=== PATIENT | female | born 1980 | race Caucasian/White ===

== ENCOUNTER 2016-12-01 11:04 | Emergency (ER) | payer SELFPAY ==
--- NOTE | 2016-12-01 11:12 | ER Document Report ---
ED Medical Screen (RME) - General Stated Complaint: RIGHT FLANK PAIN Time seen by provider: 11:12 Mode of Arrival: Ambulatory Information source: Patient Notes: 36 yo female with constant right flank pain for 2 days when it woke her up. no hematuria but has hx of kidney stones and decreased urine output. Feels like a kidney stone, has had lithotrypsy in past. TRAVEL OUTSIDE OF THE [place] IN LAST 30 DAYS: No - Related Data Allergies/Adverse Reactions: amoxicillin Allergy (Verified 12/01/16 11:16) ibuprofen [From Motrin] Allergy (Verified 12/01/16 11:16) naproxen Allergy (Verified 12/01/16 11:16) Penicillins Allergy (Verified 12/01/16 11:16) Past Medical History Pulmonary Medical History: Reports: Hx Asthma Musculoskeltal Medical History: Reports Hx Musculoskeletal Deformity, Reports Hx Musculoskeletal Trauma Psychiatric Medical History: Reports: Hx Depression Traumatic Medical History: Reports: Hx Fractures Past Surgical History: Reports: Hx Appendectomy, Hx Cholecystectomy, Hx Hysterectomy - partial, Hx Orthopedic Surgery - back surgery, left knee - Immunizations Immunizations up to date: No Hx Diphtheria, Pertussis, Tetanus Vaccination: No
[2016-12-01] MEDS ORDERED: OXYCODONE-ACETAMINOPHEN 5-325 MG TABLET PO ONE (11:15)
[2016-12-01] MEDS ORDERED: ONDANSETRON 4 MG TAB.RAPDIS PO ONE (11:15)
--- NOTE | 2016-12-01 11:57 | ER Document Report ---
ED GI/ - General Chief Complaint: Flank Pain Stated Complaint: RIGHT FLANK PAIN Time seen by provider: 11:45 Mode of Arrival: Ambulatory Information source: Patient Notes: 36 year old female presents to ED for right flank pain. She states that her pain started 2 days ago woke up with no urinary symptoms. She does have a history of kidney problems and kidney stones. 2013 she had a lithotripsy for kidney stones TRAVEL OUTSIDE OF THE [place] IN LAST 30 DAYS: No - HPI Patient complains to provider of: Flank pain. No: Hematuria Onset: Other - 2 days Timing/Duration: Intermittent Quality of pain: Sharp Severity at maximum: Moderate Severity in ED: Severe Pain Level: 5 Location: Right flank Vaginal bleeding (Compared to normal period): None Associated symptoms: Radiates to back Exacerbated by: Movement, Walking Relieved by: Denies Similar symptoms previously: Yes Recently seen / treated by doctor: No - Related Data Allergies/Adverse Reactions: amoxicillin Allergy (Verified 12/01/16 11:16) ibuprofen [From Motrin] Allergy (Verified 12/01/16 11:16) naproxen Allergy (Verified 12/01/16 11:16) Penicillins Allergy (Verified 12/01/16 11:16) Past Medical History - General Information source: Patient - Social History Smoking Status: Current Every Day Smoker Cigarette use (# per day): Yes - half pack a day Chew tobacco use (# tins/day): No Smoking Education Provided: No Frequency of alcohol use: None Drug Abuse: None Occupation: no Lives with: Spouse/Significant other Family History: CAD, CVA, DM, Hyperlipidemia, Hypertension, Malignancy Patient has suicidal ideation: No Patient has homicidal ideation: No - Past Medical History Cardiac Medical History: Reports: None Pulmonary Medical History: Reports: Hx Asthma EENT Medical History: Reports: None Neurological Medical History: Reports: None Endocrine Medical History: Reports: None Renal/ Medical History: Reports: Hx Kidney Stones, Hx Ovarian Cysts Malignancy Medical History: Reports: None GI Medical History: Reports: Hx Gastroesophageal Reflux Disease, Hx Colonoscopy , Hx Endoscopy Musculoskeltal Medical History: Reports Hx Musculoskeletal Deformity, Reports Hx Musculoskeletal Trauma Skin Medical History: Reports None Psychiatric Medical History: Reports: Hx Anxiety, Hx Bipolar Disorder, Hx Depression Traumatic Medical History: Reports: None Infectious Medical History: Reports: None Past Surgical History: Reports: Hx Appendectomy, Hx Cholecystectomy, Hx Hysterectomy - partial, Hx Orthopedic Surgery - back surgery, left knee - Immunizations Immunizations up to date: No Hx Diphtheria, Pertussis, Tetanus Vaccination: No Review of Systems - Review of Systems Constitutional: No symptoms reported EENT: No symptoms reported Cardiovascular: No symptoms reported Respiratory: No symptoms reported Gastrointestinal: No symptoms reported Genitourinary: No symptoms reported, Flank pain - Right Female Genitourinary: No symptoms reported Musculoskeletal: No symptoms reported Skin: No symptoms reported Hematologic/Lymphatic: No symptoms reported Neurological/Psychological: No symptoms reported Physical Exam - Vital signs Vitals: Temp Pulse Resp BP Pulse Ox 98.0 F 90 18 137/80 H 97 12/01/16 11:14 12/01/16 11:14 12/01/16 11:14 12/01/16 11:14 12/01/16 11:14 Interpretation: Normal - General General appearance: Appears well, Alert - HEENT Head: Normocephalic, Atraumatic Eyes: Normal Pupils: PERRL - Respiratory Respiratory status: No respiratory distress Chest status: Nontender Breath sounds: Normal Chest palpation: Normal - Cardiovascular Rhythm: Regular Heart sounds: Normal auscultation Murmur: No - Abdominal Inspection: Normal Distension: No distension Bowel sounds: Normal Tenderness: Nontender Organomegaly: No organomegaly - Back Back: Normal, CVA tenderness - Right, Scars. No: Nontender, Tender, Deformity/ step-off, Vertebra tenderness, Scoliosis, Wounds, Other - Extremities General upper extremity: Normal inspection, Nontender, Normal color, Normal ROM , Normal temperature General lower extremity: Normal inspection, Nontender, Normal color, Normal ROM , Normal temperature, Normal weight bearing. No: Aaron's sign - Neurological Neuro grossly intact: Yes Cognition: Normal Orientation: AAOx4 [place] Coma Scale Eye Opening: Spontaneous [place] Coma Scale Verbal: Oriented [place] Coma Scale Motor: Obeys Commands [place] Coma Scale Total: 15 Speech: Normal Motor strength normal: LUE, RUE, LLE, RLE Sensory: Normal - Psychological Associated symptoms: Normal affect, Normal mood - Skin Skin Temperature: Warm Skin Moisture: Dry Skin Color: Normal Course - Re-evaluation Re-evalutation: 12/01/16 13:[address] and labs with patient we'll discharge home with ibuprofen and Flexeril and patient can follow-up with her primary doctor. - Vital Signs Vital signs: Temp Pulse Resp BP Pulse Ox 98.0 F 85 16 125/70 100 12/01/16 13:38 12/01/16 13:38 12/01/16 13:38 12/01/16 13:38 12/01/16 13:38 - Laboratory Laboratory results interpreted by me: 12/01/16 11:30 Ur Leukocyte Esterase TRACE H - Diagnostic Test Radiology reviewed: Image reviewed, Reports reviewed Discharge - Discharge Clinical Impression: Right flank pain Condition: Stable Disposition: HOME, SELF-CARE Instructions: Family Physicians / Practices Additional Instructions: Flank Pain We weren't able to prove an exact cause for your flank pain. Pain in the flank can be caused by a muscle strain or spasm. Sometimes a kidney stone causes pain, but can't be found on our tests. Infection in the kidney should be evident on a urine test. Early shingles can occasionally cause flank pain, without the rash that proves the diagnosis. On rare occasions, disease of the pancreas, aorta, spleen, or colon can create pain in the flank. At this time, there's no evidence of a dangerous condition, and it seems safe for you to be at home. If the pain goes away and does not come back, no further testing will be needed. If pain persists, or becomes more severe, we may need to repeat some tests or order additional new testing. Blood in the urine, urgency to urinate frequently, and pain that radiates to the groin can indicate a kidney stone. Fever may mean that the pain is due to infection, either of the kidney or the colon (diverticulitis). If your pain is early shingles, you should develop an eruption of blisters in the painful area within a few days. Call the doctor or return if you have pain that is spreading or becoming more severe, pain that does not resolve with time, fever, or any other new symptoms. Acetaminophen Acetaminophen may be taken for pain relief or fever control. It's much safer than aspirin, offering a wider range of "safe" dosages. It is safe during . Some brand names are Tylenol, Panadol, Datril, Anacin 3, Tempra, and Liquiprin. Acetaminophen can be repeated every four hours. The following are maximum recommended dosages: WEIGHT Dose Drops Elixir Chewable( 80mg) (LBS.) drprs=droppers tsp=teaspoon 6 40 mg .4 ml (1/2) 6-11 80 mg .8 ml (full) 1/2 tsp 1 tab 12-16 120 mg 1 1/2 drprs 3/4 tsp 1 1/2 tabs 17-23 160 mg 2 drprs 1 tsp 2 tabs 24-30 240 mg 3 drprs 1 1/2 tsp 3 tabs 30-35 320 mg 2 tsp 4 tabs 36-41 360 mg 2 1/4 tsp 4 1 /2 tabs 42-47 400 mg 2 1/2 tsp 5 tabs 48-53 480 mg 3 tsp 6 tabs 54-59 520 mg 3 1/4 tsp 6 1 /2 tabs 60-64 560 mg 3 1/2 tsp 7 tabs 65-70 600 mg 3 3/4 tsp 7 1 /2 tabs 71-76 640 mg 4 tsp 8 tabs 77-82 720 mg 4 1/2 tsp 9 tabs 83-88 800 mg 5 tsp 10 tabs >89 pounds or adults 650 mg to 900 mg Acetaminophen can be repeated every four hours. Maximum daily dose not to exceed 4000 mg. These maximum recommended dosages are slightly higher than the dosages written on the product container, but these dosages are very safe and well below the toxic dosage for acetaminophen. Ibuprofen Ibuprofen is an excellent, safe drug for pain control. In addition, it has potent antiinflammatory effects which are beneficial, especially in the treatment of injuries, arthritis, or tendonitis. It's best to take ibuprofen with food. Persons with ulcer disease or allergy to aspirin should notify their physician of this before taking ibuprofen. Take the medication exactly as prescribed. Don't take additional doses unless instructed to do so by your doctor. If you develop wheezing, shortness of breath, hives, faintness, stomach pain, vomiting, or dark black stools, return for re-evaluation at once. MUSCLE RELAXERS: Muscle relaxing medications are usually prescribed for acute muscle spasm or injury to the neck and back. They are often combined with antiinflammatory pain medication for increased relief. You may stop the muscle relaxer when the pain and stiffness have improved. Start the medication again if spasms recur. Muscle relaxers may cause drowsiness, especially with the first dose. Do not operate machinery or drive while under the effects of the medication. Most muscle relaxers last up to 24 hours. Do not combine the medication with alcohol. ICE PACKS: Apply ice packs frequently against the painful area. Many different schedules are recommended, such as "20 minutes on, 20 minutes off" or "one hour ice, two hours rest." If you need to work, you may need to go longer between ice treatments. You should plan to have the area ice packed AT LEAST one fourth of the time. The ice should be applied over the wrap, tape, or splint, or over a layer of cloth -- not directly against the skin. Some ice bags have a built-in cloth and can be put directly on the skin. WARM PACKS: After approximately two days, apply gentle heat (such as a heating pad or hot water bottle) for about 20 to 30 minutes about every two hours -- at least four times daily. Warmth and elevation will help you make a more rapid recovery , and will ease the pain considerably. Do not use HOT heat, and never apply heat for longer than 30 minutes. The continuous heat can invisibly damage skin and muscles -- even when no burn is seen on the surface. Damaged muscles can make you MORE sore. FOLLOW-UP CARE: If you have been referred to a physician for follow-up care, call the physician s office for an appointment as you were instructed or within the next two days. If you experience worsening or a significant change in your symptoms, notify the physician immediately or return to the Emergency Department at any time for re-evaluation. Prescriptions: Cyclobenzaprine HCl [Flexeril 10 mg Tablet] 10 mg PO TIDP PRN #15 tab PRN Reason: Forms: Elevated Blood Pressure, Smoking Cessation Education
[2016-12-01 12:04] LABS: APPEARANCE,URINE SLIGHTLY-CLOUDY; BILIRUBIN,URINE NEGATIVE (NEGATIVE); GLUCOSE, URINE NEGATIVE (NEGATIVE); KETONES,URINE NEGATIVE (NEGATIVE); LEUKOCYTE ESTERASE,URINE TRACE (NEGATIVE); NITRITE,URINE NEGATIVE (NEGATIVE); PROTEIN,URINE NEGATIVE (NEGATIVE); URINE SPECIFIC GRAVITY 1.018; UROBILINOGEN,URINE NEGATIVE mg/dL (<2.0)
[2016-12-01 13:39] VITALS: BP 125/70
== END 2016-12-01 13:39 | disposition home or self-care (01) ==
LOC: ER 11:04
DX: R10.9 Unspecified abdominal pain (principal); F17.210 Nicotine dependence, cigarettes, uncomplicated; K21.9 Gastro-esophageal reflux disease without esophagitis; Z88.0 Allergy status to penicillin; Z88.6 Allergy status to analgesic agent; Z87.442 Personal history of urinary calculi; Z90.49 Acquired absence of other specified parts of digestive tract; Z90.710 Acquired absence of both cervix and uterus
CPT/HCPCS: 99284; 87086; 87088; 81001; 87186; 76380; S0119

== ENCOUNTER 2016-12-10 13:02 | Emergency (ER) | payer SELFPAY ==
--- NOTE | 2016-12-10 13:21 | ER Document Report ---
ED Medical Screen (RME) - General Stated Complaint: COUGH,CONGESTION,CHEST TIGHTNESS Mode of Arrival: Ambulatory Information source: Patient Notes: Patient presents to the emergency department with reports of chest tightness. Reports history of asthma. She took 2 puffs of her inhaler without relief of symptoms. Reports bad cough. Denies fever vomiting diarrhea denies chest pain. No wheeze noted I have greeted and performed a rapid initial assessment of this patient. A comprehensive ED assessment and evaluation of the patient, analysis of test results and completion of the medical decision making process will be conducted by additional ED providers. TRAVEL OUTSIDE OF THE [place] IN LAST 30 DAYS: No - Related Data Allergies/Adverse Reactions: amoxicillin Allergy (Verified 12/01/16 11:16) ibuprofen [From Motrin] Allergy (Verified 12/01/16 11:16) naproxen Allergy (Verified 12/01/16 11:16) Penicillins Allergy (Verified 12/01/16 11:16) Past Medical History Pulmonary Medical History: Reports: Hx Asthma Renal/ Medical History: Reports: Hx Kidney Stones, Hx Ovarian Cysts GI Medical History: Reports: Hx Gastroesophageal Reflux Disease, Hx Colonoscopy , Hx Endoscopy Musculoskeltal Medical History: Reports Hx Musculoskeletal Deformity, Reports Hx Musculoskeletal Trauma Psychiatric Medical History: Reports: Hx Anxiety, Hx Bipolar Disorder, Hx Depression Traumatic Medical History: Reports: Hx Fractures Past Surgical History: Reports: Hx Appendectomy, Hx Cholecystectomy, Hx Hysterectomy - partial, Hx Orthopedic Surgery - back surgery, left knee - Immunizations Immunizations up to date: No Hx Diphtheria, Pertussis, Tetanus Vaccination: No Physical Exam - Vital signs Vitals: Temp Pulse Resp BP Pulse Ox 98.2 F 108 H 20 126/81 H 95 12/10/16 13:17 12/10/16 13:17 12/10/16 13:17 12/10/16 13:17 12/10/16 13:17 Course - Vital Signs Vital signs: Temp Pulse Resp BP Pulse Ox 98.2 F 108 H 20 126/81 H 95 12/10/16 13:17 12/10/16 13:17 12/10/16 13:17 12/10/16 13:17 12/10/16 13:17
[2016-12-10] MEDS ORDERED: IPRATROPIUM/ALBUTEROL 0.5-2.5 MG/3 ML AMPUL NEB ONE ×2 (14:16→15:27)
--- NOTE | 2016-12-10 15:29 | ER Document Report ---
ED Respiratory Problem - General Chief Complaint: Cough Stated Complaint: COUGH,CONGESTION,CHEST TIGHTNESS Time seen by provider: 15:28 Mode of Arrival: Ambulatory Information source: Patient Notes: This is a 36-year-old female with a history of reactive airway disease (on albuterol), half pack per day smoker, presents to the emergency room with chest tightness, wheezing and dry cough for the past day. Patient denies fever or vomiting. Patient denies any long travel, lower extremity swelling or pain. She denies family history of blood clots. TRAVEL OUTSIDE OF THE [place] IN LAST 30 DAYS: No - HPI Patient complains to provider of: Chest pain Onset: Just prior to arrival Duration: Continuous Initiating Event: URI Quality of pain: Other - Tightness Severity: Moderate Pain Level: 2 Context: Hx asthma Chest pain/discomfort: Constant Cough: Nonproductive Sputum amount: None At home treatment: Bronchodilators Associated symptoms: Cough. denies: Chills, Fever Similar symptoms previously: Yes Recently seen / treated by doctor: No - Related Data Allergies/Adverse Reactions: amoxicillin Allergy (Verified 12/10/16 13:21) ibuprofen [From Motrin] Allergy (Verified 12/10/16 13:21) naproxen Allergy (Verified 12/10/16 13:21) Penicillins Allergy (Verified 12/10/16 13:21) Past Medical History - General Information source: Patient - Social History Smoking Status: Current Every Day Smoker Cigarette use (# per day): Yes - 1 pack per day Chew tobacco use (# tins/day): No Frequency of alcohol use: None Drug Abuse: None Lives with: Family Family History: CAD, CVA, DM, Hyperlipidemia, Hypertension, Malignancy Patient has suicidal ideation: No Patient has homicidal ideation: No Pulmonary Medical History: Reports: Hx Asthma Renal/ Medical History: Reports: Hx Kidney Stones, Hx Ovarian Cysts. Denies: Hx Peritoneal Dialysis GI Medical History: Reports: Hx Gastroesophageal Reflux Disease, Hx Colonoscopy , Hx Endoscopy Musculoskeltal Medical History: Reports Hx Musculoskeletal Deformity, Reports Hx Musculoskeletal Trauma Psychiatric Medical History: Reports: Hx Anxiety, Hx Bipolar Disorder, Hx Depression Traumatic Medical History: Reports: Hx Fractures Past Surgical History: Reports: Hx Appendectomy, Hx Cholecystectomy, Hx Hysterectomy, Hx Orthopedic Surgery - back surgery, left knee - Immunizations Immunizations up to date: No Hx Diphtheria, Pertussis, Tetanus Vaccination: No Review of Systems - Review of Systems Constitutional: Chills. denies: Fever EENT: No symptoms reported Cardiovascular: No symptoms reported Respiratory: See HPI Gastrointestinal: No symptoms reported Genitourinary: No symptoms reported Female Genitourinary: No symptoms reported Musculoskeletal: No symptoms reported Skin: No symptoms reported Hematologic/Lymphatic: No symptoms reported Neurological/Psychological: No symptoms reported Physical Exam - Vital signs Vitals: Temp Pulse Resp BP Pulse Ox 98.2 F 108 H 20 126/81 H 95 12/10/16 13:17 12/10/16 13:17 12/10/16 13:17 12/10/16 13:17 12/10/16 13:17 Notes: Physical exam: GENERAL: 36-year-old female, alert and oriented 3, no acute distress HEAD: Atraumatic, normocephalic. EYES: Pupils equal round and reactive to light, extraocular movements intact, sclera anicteric, conjunctiva are normal. ENT: TMs normal, nares patent, oropharynx clear without exudates. Moist mucous membranes. NECK: Normal range of motion, supple without lymphadenopathy or JVD. LUNGS: Scattered wheezes, good chest wall excursion. HEART: Regular rate and rhythm without murmurs, rubs or gallops. ABDOMEN: Soft, nontender, normoactive bowel sounds. No guarding, no rebound. No masses appreciated. EXTREMITIES: Normal range of motion, no pitting or edema. No clubbing or cyanosis. NEUROLOGICAL: Cranial nerves II through XII grossly intact. Normal speech, normal gait. PSYCH: Normal mood, normal affect. SKIN: Warm, Dry, normal turgor, no rashes or lesions noted. Course - Re-evaluation Re-evalutation: 12/10/16 16:32 Note: Chest x-ray looks clear. Patient looks very comfortable on reassessment. She states that prednisone has not helped her in the past so we will hold off on that. I did offer her an inhaler but she said she's got 1 and is good as far as that goes. I've given her good instructions to return if worse. Patient does have follow-up at the [facility]. 12/10/16 16:33 - Vital Signs Vital signs: Temp Pulse Resp BP Pulse Ox 97.6 F 98 21 H 100/60 97 12/10/16 16:20 12/10/16 16:20 12/10/16 16:20 12/10/16 16:20 12/10/16 16:20 Discharge - Discharge Clinical Impression: reactive airway disease Condition: Stable Disposition: HOME, SELF-CARE Instructions: Bronchitis With Bronchospasm (Wheezing) ([facility]) Additional Instructions: Recommendations: Rest, drink plenty of fluids, continue with the inhaler. I would hold off on the cigarettes for the next several days. [facility] Return to the emergency room for worsening tightness, spiking fevers, worsening breathing or any concerns or to getting worse.
[2016-12-10 16:37] VITALS: BP 100/60
--- NOTE | 2016-12-10 18:20 | EKG REPORT ---
SEVERITY:- NORMAL ECG - SINUS RHYTHM : Confirmed by: David Clarke MD 10-Dec-2016 18:19:57
== END 2016-12-10 16:37 | disposition home or self-care (01) ==
LOC: ER 13:02
DX: J45.909 Unspecified asthma, uncomplicated (principal); R07.89 Other chest pain; R05 Cough; R68.83 Chills (without fever); F17.210 Nicotine dependence, cigarettes, uncomplicated; Z79.899 Other long term (current) drug therapy; Z88.0 Allergy status to penicillin; Z88.6 Allergy status to analgesic agent; Z88.8 Allergy status to other drugs, medicaments and biological substances
CPT/HCPCS: 93005; 94640 ×2; 99284; 71020; 93010; J7620

== ENCOUNTER 2017-02-20 13:14 | Emergency (ER) | payer SELFPAY ==
--- NOTE | 2017-02-20 13:18 | ER Document Report ---
ED Medical Screen (RME) - General Chief Complaint: Back Pain Stated Complaint: LOWER BACK PAIN Notes: Patient states she helped lift a heavy person up and felt a pop in her lower back. Previous history of back surgery. Pain is radiating down right leg. I have greeted and performed a rapid initial assessment of this patient. A comprehensive ED assessment and evaluation of the patient, analysis of test results and completion of the medical decision making process will be conducted by additional ED providers. TRAVEL OUTSIDE OF THE [place] IN LAST 30 DAYS: No - Related Data Allergies/Adverse Reactions: amoxicillin Allergy (Verified 02/20/17 13:17) Penicillins Allergy (Verified 02/20/17 13:17) ibuprofen [From Motrin] Adverse Reaction (Verified 02/20/17 13:17) ulcer naproxen Adverse Reaction (Verified 02/20/17 13:17) ulcer Past Medical History Pulmonary Medical History: Reports: Hx Asthma Renal/ Medical History: Reports: Hx Kidney Stones, Hx Ovarian Cysts. Denies: Hx Peritoneal Dialysis GI Medical History: Reports: Hx Gastroesophageal Reflux Disease, Hx Colonoscopy , Hx Endoscopy Musculoskeltal Medical History: Reports Hx Musculoskeletal Deformity, Reports Hx Musculoskeletal Trauma Psychiatric Medical History: Reports: Hx Anxiety, Hx Bipolar Disorder, Hx Depression Traumatic Medical History: Reports: Hx Fractures Past Surgical History: Reports: Hx Appendectomy, Hx Cholecystectomy, Hx Hysterectomy, Hx Orthopedic Surgery - back surgery, left knee - Immunizations Immunizations up to date: No Hx Diphtheria, Pertussis, Tetanus Vaccination: No
[2017-02-20 14:03] VITALS: BP 131/71
--- NOTE | 2017-02-20 14:08 | ER Document Report ---
HPI - HPI Patient complains to provider of: low back pain Onset: Yesterday Onset/Duration: Gradual Pain Level: 5 Context: 36 yo female with hx back pain points to sacral back for location of the pain. No radiculopathy or saddle anesthesia. No fever. No iv drug use. Associated Symptoms: None Exacerbated by: Movement Relieved by: Denies Similar symptoms previously: Yes Recently seen / treated by doctor: No - ROS ROS below otherwise negative: Yes Systems Reviewed and Negative: Yes All other systems reviewed and negative - REPRODUCTIVE Reproductive: DENIES: : - DERM Skin Color: Normal, [place] Past Medical History - General Information source: Patient - Social History Smoking Status: Current Every Day Smoker Chew tobacco use (# tins/day): No Frequency of alcohol use: None Drug Abuse: None Lives with: Parents Family History: CAD, CVA, DM, Hyperlipidemia, Hypertension, Malignancy Patient has suicidal ideation: No Patient has homicidal ideation: No Pulmonary Medical History: Reports: Hx Asthma Renal/ Medical History: Reports: Hx Kidney Stones, Hx Ovarian Cysts. Denies: Hx Peritoneal Dialysis GI Medical History: Reports: Hx Gastroesophageal Reflux Disease, Hx Colonoscopy , Hx Endoscopy Musculoskeltal Medical History: Reports Hx Musculoskeletal Deformity, Reports Hx Musculoskeletal Trauma Psychiatric Medical History: Reports: Hx Anxiety, Hx Bipolar Disorder, Hx Depression Traumatic Medical History: Reports: Hx Fractures Past Surgical History: Reports: Hx Appendectomy, Hx Cholecystectomy, Hx Hysterectomy, Hx Orthopedic Surgery - back surgery, left knee - Immunizations Immunizations up to date: No Hx Diphtheria, Pertussis, Tetanus Vaccination: No Vertical Provider Document - CONSTITUTIONAL Agree With Documented VS: Yes Exam Limitations: No Limitations General Appearance: No Apparent Distress - INFECTION CONTROL TRAVEL OUTSIDE OF THE [place] IN LAST 30 DAYS: No - HEENT HEENT: Normocephalic - NECK Neck: Supple - MUSCULOSKELETAL/EXTREMETIES Musculoskeletal/Extremeties: MAEW, FROM, Tender - middle scarum, no swelling or rash - NEURO Level of Consciousness: Awake, Alert Motor/Sensory: No Motor Deficit, No Sensory Deficit Deep Tendon Reflexes: 2+ - kelvin ankle and patellar Course - Re-evaluation Re-evalutation: 02/20/17 14:03 xray nothing acute, post surgical changes Discharge - Discharge Clinical Impression: sacral back strain Condition: Good Disposition: HOME, SELF-CARE Instructions: Low Back Pain ([facility]), Warm Packs ([facility]), Ultram ([facility]), Family Physicians / Practices Additional Instructions: warm compress to er if worse Please complete the patient satisfaction survey if you get one, and return it.. If you do not receive a survey, then you can go to the [facility] website, [email or web address] and place your comments about your very good care. Thank you very much. It was a pleasure being your medical provider today. Prescriptions: Tramadol HCl [Ultram 50 mg Tablet] 50 mg PO ASDIR PRN #15 tablet PRN Reason: Forms: Return to Work
== END 2017-02-20 14:21 | disposition home or self-care (01) ==
LOC: ER 13:14
DX: S39.012A Strain of muscle, fascia and tendon of lower back, initial encounter (principal); X58.XXXA Exposure to other specified factors, initial encounter; Y93.89 Activity, other specified; J45.909 Unspecified asthma, uncomplicated; F17.200 Nicotine dependence, unspecified, uncomplicated; Z98.890 Other specified postprocedural states
CPT/HCPCS: 72110; 99283

== ENCOUNTER 2017-03-17 21:08 | Emergency (ER) | payer SELFPAY ==
[2017-03-17 22:26] LABS: ABSOLUTE BASOPHILS # (AUTO) 0.1 10^3/uL (0.0-0.2); ABSOLUTE EOSINOPHILS # (AUTO) 0.2 10^3/uL (0.0-0.6); ABSOLUTE LYMPHOCYTES (AUTO) 3.8 10^3/uL (0.5-4.7); ABSOLUTE MONOCYTES (AUTO) 0.5 10^3/uL (0.1-1.4); ABSOLUTE NEUT (AUTO) 5.7 10^3/uL (1.7-8.2); BASOPHILS % (AUTO) 0.8 % (0-2); EOSINOPHILS % (AUTO) 2.2 % (0-6); HEMATOCRIT 39.3 % (36.0-47.0); HEMOGLOBIN 13.3 g/dL (12.0-15.5); HGB HCT DIFFERENCE 0.6; LYMPHOCYTES % (AUTO) 36.7 % (13-45); MEAN CORPUSCULAR HEMOGLOBIN 30.6 pg (27.0-33.4); MEAN CORPUSCULAR HGB CONC 33.8 g/dL (32.0-36.0); MEAN CORPUSCULAR VOLUME 91 fl (80-97); MONOCYTES % (AUTO) 5.1 % (3-13); RED BLOOD COUNT 4.34 10^6/uL (3.72-5.28); RED CELL DISTRIBUTION WIDTH 13.5 % (11.5-14.0); SEGMENTED NEUTROPHILS % (AUTO) 55.2 % (42-78); WHITE BLOOD COUNT 10.4 10^3/uL (4.0-10.5)
[2017-03-17 22:33] LABS: APPEARANCE,URINE SLIGHTLY-CLOUDY; BILIRUBIN,URINE NEGATIVE (NEGATIVE); GLUCOSE, URINE NEGATIVE (NEGATIVE); KETONES,URINE NEGATIVE (NEGATIVE); LEUKOCYTE ESTERASE,URINE SMALL (NEGATIVE); NITRITE,URINE POSITIVE (NEGATIVE); PROTEIN,URINE NEGATIVE (NEGATIVE); URINE SPECIFIC GRAVITY 1.013; UROBILINOGEN,URINE NEGATIVE mg/dL (<2.0)
[2017-03-17 22:44] LABS: ALANINE AMINOTRANSFERASE 20 U/L (9-52); ALBUMIN 3.9 g/dL (3.5-5.0); ALKALINE PHOSPHATASE 82 U/L (38-126); ANION GAP 14 (5-19); ASPARTATE AMINO TRANSFERASE 18 U/L (14-36); BILIRUBIN,DIRECT 0.3 mg/dL (0.0-0.4); BILIRUBIN,TOTAL 0.4 mg/dL (0.2-1.3); BLOOD UREA NITROGEN 5 mg/dL (7-20); CALCIUM 9.2 mg/dL (8.4-10.2); CARBON DIOXIDE 21 mmol/L (22-30); CHLORIDE 106 mmol/L (98-107); CREATININE RESULT 0.71 mg/dL (0.52-1.25); GLUCOSE 138 mg/dL (75-110); LIPASE 107.2 U/L (23-300); POTASSIUM 4.1 mmol/L (3.6-5.0); SODIUM 140.5 mmol/L (137-145); TOTAL PROTEIN 6.9 g/dL (6.3-8.2)
--- NOTE | 2017-03-18 00:53 | ER Document Report ---
ED GI/ - General Chief Complaint: Abdominal Pain Stated Complaint: ABDOMINAL PAIN Notes: The patient is a 36 yo female, past medical history ovarian cyst, appendectomy, cholecystectomy, gastric ulcers, presents with 3 days of right lower quadrant abdominal pain and nausea. She describes the pain as a pulling sensation. She has had this in the past and was told to follow-up with the health clinic. She is unable to get a repeat ultrasound. Denies vomiting, diarrhea, constipation, dysuria, vaginal bleeding, flank pain, fevers, chest pain or shortness of breath. TRAVEL OUTSIDE OF THE [place] IN LAST 30 DAYS: No - Related Data Allergies/Adverse Reactions: amoxicillin Allergy (Verified 02/20/17 13:17) Penicillins Allergy (Verified 02/20/17 13:17) ibuprofen [From Motrin] Adverse Reaction (Verified 02/20/17 13:17) ulcer naproxen Adverse Reaction (Verified 02/20/17 13:17) ulcer Past Medical History - General Information source: Patient - Social History Smoking Status: Unknown if Ever Smoked Family History: CAD, CVA, DM, Hyperlipidemia, Hypertension, Malignancy Patient has suicidal ideation: No Patient has homicidal ideation: No Pulmonary Medical History: Reports: Hx Asthma Renal/ Medical History: Reports: Hx Kidney Stones, Hx Ovarian Cysts. Denies: Hx Peritoneal Dialysis GI Medical History: Reports: Hx Gastroesophageal Reflux Disease, Hx Colonoscopy , Hx Endoscopy Musculoskeltal Medical History: Reports Hx Musculoskeletal Deformity, Reports Hx Musculoskeletal Trauma Psychiatric Medical History: Reports: Hx Anxiety, Hx Bipolar Disorder, Hx Depression Traumatic Medical History: Reports: Hx Fractures Past Surgical History: Reports: Hx Appendectomy, Hx Cholecystectomy, Hx Hysterectomy, Hx Orthopedic Surgery - back surgery, left knee - Immunizations Immunizations up to date: No Hx Diphtheria, Pertussis, Tetanus Vaccination: No Review of Systems - Review of Systems Notes: REVIEW OF SYSTEMS: CONSTITUTIONAL: -fevers, -chills EENT: -eye pain, -difficulty swallowing, -nasal congestion CARDIOVASCULAR:-chest pain, -syncope. RESPIRATORY: -cough, -SOB GASTROINTESTINAL: +abdominal pain, +nausea, -vomiting, -diarrhea GENITOURINARY: -dysuria, -hematuria MUSCULOSKELETAL: -back pain, -neck pain SKIN: -rash or skin lesions. HEMATOLOGIC: -easy bruising or bleeding. LYMPHATIC: -swollen, enlarged glands. NEUROLOGICAL: -altered mental status or loss of consciousness, -headache, - neurologic symptoms PSYCHIATRIC: -anxiety, -depression. ALL OTHER SYSTEMS REVIEWED AND NEGATIVE. Physical Exam - Vital signs Vitals: Temp Pulse Resp BP Pulse Ox 98.4 F 135 H 20 144/91 H 98 03/17/17 21:17 03/17/17 21:17 03/17/17 21:17 03/17/17 21:17 03/17/17 21:17 - Notes Notes: PHYSICAL EXAMINATION: GENERAL: Well-appearing, well-nourished and in no acute distress. HEAD: Atraumatic, normocephalic. EYES: Pupils equal round and reactive to light, extraocular movements intact, sclera anicteric, conjunctiva are normal. ENT: nares patent, oropharynx clear without exudates. Moist mucous membranes. NECK: Normal range of motion, supple without lymphadenopathy LUNGS: Breath sounds clear to auscultation bilaterally and equal. No wheezes rales or rhonchi. HEART: Regular rate and rhythm without murmurs ABDOMEN: Soft, nontender, normoactive bowel sounds. No guarding, no rebound. No masses appreciated. EXTREMITIES: Normal range of motion, no pitting or edema. No cyanosis. NEUROLOGICAL: Cranial nerves grossly intact. Normal speech, normal gait. Normal sensory, motor, and reflex exams. PSYCH: Normal mood, normal affect. SKIN: Warm, Dry, normal turgor, no rashes or lesions noted. Course - Re-evaluation Re-evalutation: With history of ovarian cyst and right lower quadrant abdominal pain, will obtain ultrasound to assess for presence of torsion. She does not have an appendix anymore. Her urinalysis shows possible UTI but it appears contaminated and she is not having any urinary symptoms. Will not treat at this time and will send urine culture. 03/18/17 02:23 US does not show any evidence of torsion or other acute abnormalities. Patient is no longer pain and does not feel nauseous. tachycardia resolved and her heart rate is 78 on discharge. Told her to follow- up with gynecology. - Vital Signs Vital signs: Temp Pulse Resp BP Pulse Ox 98.4 F 135 H 20 144/91 H 98 03/17/17 21:17 03/17/17 21:17 03/17/17 21:17 03/17/17 21:17 03/17/17 21:17 - Laboratory Result Diagrams: 03/17/17 21:40 03/17/17 21:40 Laboratory results interpreted by me: 03/17/17 03/17/17 21:40 21:40 Carbon Dioxide 21 L BUN 5 L Glucose 138 H Urine Nitrite POSITIVE H Ur Leukocyte Esterase SMALL H - Diagnostic Test Radiology reviewed: Image reviewed, Reports reviewed Radiology results interpreted by me: Pelvic US: NAD Discharge - Discharge Clinical Impression: Abdominal pain Qualifiers: Abdominal location: right lower quadrant Qualified Code(s): R10.31 - Right lower quadrant pain Condition: Stable Disposition: HOME, SELF-CARE Additional Instructions: ABDOMINAL PAIN: There are many causes of abdominal pain. Pain can mean a serious problem requiring surgery (such as appendicitis). It can also be an innocent problem that goes away on its own (such as a viral infection). Often, time must pass to determine the cause of pain. The physician does not feel that hospitalization is necessary, at present. Things may change within the next 24 hours. Call the doctor or come back for re- examination if any problems occur, such as: (1) Pain that becomes more severe, steady, or becomes concentrated in one specific area. Also, pain that is more severe with movement or coughing. (2) Vomiting that persists or becomes more frequent. (3) Blood in the vomitus, urine, or bowel movements. Blood in the stool may have a tarry or black appearance. (4) Shaking chills or fever greater than 100 degrees F. (5) The abdomen becomes more distended or swollen. (6) Bowel movements cease. (7) Failure to improve as expected. NORMAL EXAM AND WORKUP: At this time, your examination and workup show no significant abnormality. No significant abnormal physical findings are noted. All laboratory, EKG, and imaging (x-ray, CT scans, ultrasound) studies that were ordered show no significant abnormality. Although your examination and all studies that were ordered showed no significant abnormal finding, there are no examinations and no studies that are 100% accurate. There is always the possibility that some abnormality could exist and not be detected with physical examination or within the limits and capabilities of laboratory and other studies. You should return or follow up as you were instructed on your visit today for further evaluation if your symptoms do not resolve. FOLLOW-UP CARE: If you have been referred to a physician for follow-up care, call the physician s office for an appointment as you were instructed or within the next two days. If you experience worsening or a significant change in your symptoms, notify the physician immediately or return to the Emergency Department at any time for re-evaluation. Referrals: MULU LEE MD [ACTIVE STAFF] - Follow up as needed
[2017-03-18] MEDS ORDERED: HYDROCODONE/ACETAMINOPHEN 5-325 MG TABLET PO ONE (01:00)
[2017-03-18] MEDS ORDERED: ONDANSETRON 4 MG TAB.RAPDIS PO ONE (01:00)
[2017-03-18 02:35] VITALS: BP 111/72
== END 2017-03-18 02:36 | disposition home or self-care (01) ==
LOC: ER 21:08
DX: R10.31 Right lower quadrant pain (principal); R11.0 Nausea; J45.909 Unspecified asthma, uncomplicated; Z90.49 Acquired absence of other specified parts of digestive tract; Z90.710 Acquired absence of both cervix and uterus; Z87.42 Personal history of other diseases of the female genital tract; Z87.11 Personal history of peptic ulcer disease; Z88.0 Allergy status to penicillin
CPT/HCPCS: 99284; 36415; 83690; 85025; 81025; 80053; 81001; 76830; 93976; S0119

== ENCOUNTER 2017-03-29 15:23 | Emergency (ER) | payer SELFPAY ==
[2017-03-29] MEDS ORDERED: LIDOCAINE 2% VISCOUS SOLN 20 ML UDCUP PO ONE (16:04)
[2017-03-29] MEDS ORDERED: ONDANSETRON 4 MG TAB.RAPDIS PO ONE (16:04)
--- NOTE | 2017-03-29 17:12 | ER Document Report ---
HPI - HPI Patient complains to provider of: sore throat Pain Level: 1 Context: Patient is a 36-year-old female presents emergency Department complaining of sore throat since last evening. She's been taking Tylenol for pain with minimal improvement in her symptoms. She admits to dysphagia but has been tolerating by mouth with minimal nausea due to the pain of swallowing. Otherwise, she denies any fever, chills, shortness of breath, wheezing, chest pain, syncope or dizziness. - CARDIOVASCULAR Cardiovascular: DENIES: Chest pain - REPRODUCTIVE Reproductive: DENIES: : - DERM Skin Color: Normal Past Medical History - Social History Smoking Status: Current Some Day Smoker Chew tobacco use (# tins/day): No Frequency of alcohol use: None Drug Abuse: None Family History: CAD, CVA, DM, Hyperlipidemia, Hypertension, Malignancy Patient has suicidal ideation: No Patient has homicidal ideation: No Pulmonary Medical History: Reports: Hx Asthma Renal/ Medical History: Reports: Hx Kidney Stones, Hx Ovarian Cysts. Denies: Hx Peritoneal Dialysis GI Medical History: Reports: Hx Gastroesophageal Reflux Disease, Hx Colonoscopy , Hx Endoscopy Musculoskeltal Medical History: Reports Hx Musculoskeletal Deformity, Reports Hx Musculoskeletal Trauma Psychiatric Medical History: Reports: Hx Anxiety, Hx Bipolar Disorder, Hx Depression Traumatic Medical History: Reports: Hx Fractures Past Surgical History: Reports: Hx Appendectomy, Hx Cholecystectomy, Hx Hysterectomy, Hx Orthopedic Surgery - back surgery, left knee - Immunizations Immunizations up to date: No Hx Diphtheria, Pertussis, Tetanus Vaccination: No Vertical Provider Document - CONSTITUTIONAL Agree With Documented VS: Yes Notes: PHYSICAL EXAM GENERAL: Alert, interacts well. HEAD: Normocephalic, atraumatic. EYES: Pupils equal, round, and reactive to light. Extraocular movements intact. ENT: Uvula midline. Airway patent. No evidence of tonsillar enlargement, peritonsillar abscess, retropharyngeal abscess. NECK: Full range of motion. Supple. Trachea midline. LUNGS: Clear to auscultation bilaterally, no wheezes, rales, or rhonchi. No respiratory distress. HEART: Regular rate and rhythm. No murmurs, gallops, or rubs. ABDOMEN: Soft, nondistended, nontender. No guarding, rebound, or rigidity.. Bowel sounds present in all 4 quadrants. EXTREMITIES: Moves all 4 extremities spontaneously. No edema, radial and dorsalis pedis pulses 2/4 bilaterally. No cyanosis. NEUROLOGICAL: Alert and oriented x4. Normal speech. PSYCH: Normal affect, normal mood. SKIN: Warm, dry, normal turgor. No rashes or lesions noted. - INFECTION CONTROL TRAVEL OUTSIDE OF THE [place] IN LAST 30 DAYS: No - RESPIRATORY O2 Sat by Pulse Oximetry: 98 Course - Re-evaluation Re-evalutation: 03/29/17 19:55 Patient is a 36 old female who is hemodynamically stable, no acute distress and afebrile. Rapid strep has come back negative, no evidence of peritonsillar retropharyngeal abscess. Stable for discharge home and can follow-up with her primary care physician as needed - Vital Signs Vital signs: Temp Pulse Resp BP Pulse Ox 98.2 F 108 H 16 133/85 H 98 03/29/17 15:44 03/29/17 15:44 03/29/17 15:44 03/29/17 15:44 03/29/17 15:44 Discharge - Discharge Clinical Impression: Sore throat (viral) Condition: Good Disposition: HOME, SELF-CARE Instructions: Fever ([facility]), Sore Throat ([facility]), Upper Respiratory Illness ([facility]) Prescriptions: Acetaminophen with Codeine [Acetaminophen-Cod #3 Tablet] 1 each PO Q6HP PRN #15 tablet PRN Reason: Ondansetron [Zofran Odt 4 mg Tablet] 1 - 2 tab PO Q4H PRN #20 tab.rapdis PRN Reason: For Nausea/Vomiting Forms: Return to Work
[2017-03-29 17:30] VITALS: BP 132/78
== END 2017-03-29 17:29 | disposition home or self-care (01) ==
LOC: ER 15:23
DX: J02.8 Acute pharyngitis due to other specified organisms (principal); B97.89 Other viral agents as the cause of diseases classified elsewhere; R13.10 Dysphagia, unspecified; R11.0 Nausea; F17.200 Nicotine dependence, unspecified, uncomplicated; J45.909 Unspecified asthma, uncomplicated
CPT/HCPCS: 99283; 87070; 87880; S0119; J3490

== ENCOUNTER 2017-04-05 11:49 | Observation (INO) | payer SELFPAY ==
[2017-04-05] MEDS ORDERED: ADENOSINE INJ/PF 6 MG/2 ML SDV IV ONE (12:09)
--- NOTE | 2017-04-05 12:17 | ER Document Report ---
ED Cardiac - General Mode of Arrival: Ambulatory Information source: Patient TRAVEL OUTSIDE OF THE [place] IN LAST 30 DAYS: No - HPI Patient complains to provider of: Chest pain - "pressure" Cardiac risk factors: Smoker Associated symptoms: Other - see notes above <TIMOTHY DURAND - Last Filed: 04/05/17 12:37> <SARAH BETH KOHLER - Last Filed: 04/05/17 12:38> <CAROLYN WIGGINS - Last Filed: 04/05/17 17:49> - General Chief Complaint: Chest Pain Stated Complaint: DIFFICULTY BREATHING Time Seen by Provider: 04/05/17 12:05 Notes: 36 year old female with history of asthma presents to the ED complaining of chest pressure and a racing heart that started at 0900 this morning. Patient also complains of dizziness. Patient is a 0.5 ppd smoker. (TIMOTHY DURAND) - Related Data Allergies/Adverse Reactions: amoxicillin Allergy (Verified 03/29/17 15:45) Penicillins Allergy (Verified 03/29/17 15:45) ibuprofen [From Motrin] Adverse Reaction (Verified 03/29/17 15:45) ulcer naproxen Adverse Reaction (Verified 03/29/17 15:45) ulcer Past Medical History - General Information source: Patient - Social History Smoking Status: Current Every Day Smoker Cigarette use (# per day): Yes - 0.5 ppd Frequency of alcohol use: None Family History: CAD, CVA, DM, Hyperlipidemia, Hypertension, Malignancy Pulmonary Medical History: Reports: Hx Asthma Renal/ Medical History: Reports: Hx Kidney Stones, Hx Ovarian Cysts. Denies: Hx Peritoneal Dialysis GI Medical History: Reports: Hx Gastroesophageal Reflux Disease, Hx Colonoscopy , Hx Endoscopy Musculoskeltal Medical History: Reports Hx Musculoskeletal Deformity, Reports Hx Musculoskeletal Trauma Psychiatric Medical History: Reports: Hx Anxiety, Hx Bipolar Disorder, Hx Depression Traumatic Medical History: Reports: Hx Fractures Past Surgical History: Reports: Hx Appendectomy, Hx Cholecystectomy, Hx Hysterectomy - partial, Hx Orthopedic Surgery - back surgery, left knee, Hx Tonsillectomy - Immunizations Immunizations up to date: No Hx Diphtheria, Pertussis, Tetanus Vaccination: No <TIMOTHY DURAND - Last Filed: 04/05/17 12:37> Review of Systems - Review of Systems Constitutional: No symptoms reported EENT: No symptoms reported Cardiovascular: See HPI, Chest pain - "pressure", Heart racing Respiratory: No symptoms reported Gastrointestinal: No symptoms reported Genitourinary: No symptoms reported Female Genitourinary: No symptoms reported Musculoskeletal: No symptoms reported Skin: No symptoms reported Hematologic/Lymphatic: No symptoms reported Neurological/Psychological: No symptoms reported -: Yes All other systems reviewed and negative <TIMOTHY DURAND - Last Filed: 04/05/17 12:37> Physical Exam - General General appearance: Alert In distress: None - HEENT Head: Normocephalic, Atraumatic Eyes: Normal Extraocular movements intact: Yes Pupils: PERRL - Respiratory Respiratory status: No respiratory distress Breath sounds: Normal - Cardiovascular Rhythm: Regular, Tachycardia - 180 bpm on exam Heart sounds: Normal auscultation - Abdominal Inspection: Normal Distension: No distension Tenderness: Nontender - Back Back: Normal - Extremities General upper extremity: Normal inspection, Normal ROM. No: Edema General lower extremity: Normal inspection, Normal ROM. No: Edema - Neurological Neuro grossly intact: Yes - Psychological Associated symptoms: Normal affect, Normal mood - Skin Skin Temperature: Warm Skin Moisture: Dry Skin Color: Normal <TIMOTHY DURAND - Last Filed: 04/05/17 12:37> Course <TIMOTHY DURAND - Last Filed: 04/05/17 12:37> <SARAH BETH KOHLER - Last Filed: 04/05/17 12:38> - Laboratory Result Diagrams: 04/05/17 12:33 04/05/17 12:33 - Diagnostic Test Radiology reviewed: Image reviewed, Reports reviewed - CTA chest was read as normal. - EKG Interpretation by Me EKG shows normal: Sinus rhythm, [place], Intervals, QRS Complexes, ST-T Waves Rate: Tachycardia - 115 When compared to previous EKG there are: Changes noted - Earlier EKG today showed PSVT with a rate of 179 - Consults Dr. Marshall Time consulted: 17:40 Consulted provider: will see as inpatient Dr. Junior Time consulted: 17:45 Consulted provider: will come to ER <CAROLYN WIGGINS - Last Filed: 04/05/17 17:49> - Re-evaluation Re-evalutation: 04/05/17 12:42 The patient was a difficult IV stick, Dr. Kohler was able to get an IV using the ultrasound. Shortly after the IV was started the patient spontaneously converted to a sinus tachycardia with rate of 124. 04/05/17 15:54 Patient's heart rate slowed down to about 105. She had a multiple bathroom and became short of breath and heart rate increased back to about 1:30. A d-dimer was added and came back elevated so a CTA chest will be done. 04/05/17 17:22 CTA chest was read as normal. The patient was walked down the hallway with pulse ox on, maintained O2 saturation of 98% on room air. Her heart rate remained in the 110 to 115 range. Auscultation of her lungs showed no rhonchi or wheezes. At rest she is not tachypneic, her heart rate is about 102, her pulse ox is 97% on room air. She complains of still feeling winded, particularly with walking. (CAROLYN WIGGINS) - Vital Signs Vital signs: Temp Pulse Resp BP Pulse Ox 98.5 F 189 H 10 L 128/76 H 97 04/05/17 12:02 04/05/17 12:02 04/05/17 14:28 04/05/17 14:28 04/05/17 14:28 - Laboratory Laboratory results interpreted by me: 04/05/17 04/05/17 04/05/17 12:33 12:33 12:33 WBC 14.4 H Absolute Neutrophils 9.6 H D-Dimer 1.65 H Carbon Dioxide 21 L Glucose 120 H Calcium 10.4 H Direct Bilirubin 0.6 H Alkaline Phosphatase 153 H Total Protein 9.2 H Procedures <TIMOTHY DURAND - Last Filed: 04/05/17 12:37> <SARAH BETH KOHLER - Last Filed: 04/05/17 12:38> <CAROLYN WIGGINS - Last Filed: 04/05/17 17:49> - Additional Procedures ultrasound-guided venous puncture Notes: 04/05/17 12:38 Tourniquet was placed on the right upper extremity with ChloraPrep applied vein was visualized was compressible a 20-gauge IV was instilled in the lumen of the vein good blood return. No complications (SARAH BETH KOHLER) Discharge <TIMOTHY DURAND - Last Filed: 04/05/17 12:37> <SARAH BETH KOHLER - Last Filed: 04/05/17 12:38> - Discharge Admitting Provider: Hospitalist Unit Admitted: Telemetry <CAROLYN WIGGINS - Last Filed: 04/05/17 17:49> - Discharge Clinical Impression: Paroxysmal supraventricular tachycardia, Chest pressure, Tachycardia with heart rate 100-120 beats per minute Dyspnea Qualifiers: Dyspnea type: dyspnea on exertion Qualified Code(s): R06.09 - Other forms of dyspnea Condition: Stable Disposition: ADMITTED OBSERVATION Scribe Documentation - Scribe Written by Scribe:: Marciano Haji, 04/05/2017 1223 acting as scribe for :: Royer <TIMOTHY DURAND - Last Filed: 04/05/17 12:37>
[2017-04-05] MEDS ORDERED: NORMAL SALINE 1000 ML 1,000 ML IV ONE ×2 (12:38→17:44)
[2017-04-05 12:49] LABS: ABSOLUTE BASOPHILS # (AUTO) 0.1 10^3/uL (0.0-0.2); ABSOLUTE EOSINOPHILS # (AUTO) 0.2 10^3/uL (0.0-0.6); ABSOLUTE LYMPHOCYTES (AUTO) 3.7 10^3/uL (0.5-4.7); ABSOLUTE MONOCYTES (AUTO) 0.8 10^3/uL (0.1-1.4); ABSOLUTE NEUT (AUTO) 9.6 10^3/uL (1.7-8.2); BASOPHILS % (AUTO) 0.6 % (0-2); EOSINOPHILS % (AUTO) 1.5 % (0-6); HEMATOCRIT 44.9 % (36.0-47.0); HEMOGLOBIN 15.4 g/dL (12.0-15.5); HGB HCT DIFFERENCE 1.3; LYMPHOCYTES % (AUTO) 25.9 % (13-45); MEAN CORPUSCULAR HEMOGLOBIN 30.1 pg (27.0-33.4); MEAN CORPUSCULAR HGB CONC 34.2 g/dL (32.0-36.0); MEAN CORPUSCULAR VOLUME 88 fl (80-97); MONOCYTES % (AUTO) 5.5 % (3-13); RED BLOOD COUNT 5.11 10^6/uL (3.72-5.28); RED CELL DISTRIBUTION WIDTH 13.2 % (11.5-14.0); SEGMENTED NEUTROPHILS % (AUTO) 66.5 % (42-78); WHITE BLOOD COUNT 14.4 10^3/uL (4.0-10.5)
[2017-04-05 13:10] LABS: ALANINE AMINOTRANSFERASE 24 U/L (9-52); ALBUMIN 4.8 g/dL (3.5-5.0); ALKALINE PHOSPHATASE 153 U/L (38-126); ANION GAP 15 (5-19); ASPARTATE AMINO TRANSFERASE 20 U/L (14-36); BILIRUBIN,DIRECT 0.6 mg/dL (0.0-0.4); BILIRUBIN,TOTAL 0.8 mg/dL (0.2-1.3); BLOOD UREA NITROGEN 10 mg/dL (7-20); CALCIUM 10.4 mg/dL (8.4-10.2); CARBON DIOXIDE 21 mmol/L (22-30); CHLORIDE 104 mmol/L (98-107); CREATINE KINASE 78 U/L (30-135); CREATININE RESULT 0.87 mg/dL (0.52-1.25); GLUCOSE 120 mg/dL (75-110); POTASSIUM 4.8 mmol/L (3.6-5.0); SODIUM 140.4 mmol/L (137-145); TOTAL PROTEIN 9.2 g/dL (6.3-8.2)
[2017-04-05 13:21] LABS: CREATINE KINASE MB 0.43 ng/mL (<4.55)
[2017-04-05 13:22] LABS: TROPONIN I < 0.012 ng/mL
[2017-04-05] MEDS ORDERED: ACETAMINOPHEN 325 MG TABLET PO PRN (18:29)
[2017-04-05] MEDS ORDERED: ONDANSETRON HCL INJ/PF 4 MG/2 ML SDV IV PRN (18:34)
[2017-04-05] MEDS ORDERED: PREDNISONE 20 MG TABLET PO ONE (18:42)
--- NOTE | 2017-04-05 19:00 | PDOC H&P ---
History of Present Illness Admission Date/PCP: 04/05/17 Patient complains of: Palpitation History of Present Illness: MAURY RAM is a 36 year old female, with history of asthma and anxiety, has been having cough for the past week but without any shortness of breath. Patient has been using her inhaler w/ pro-air more frequently but not yesterday. Her asthma is more up coughing rather than wheezing. No sinus congestion, sore throat , fever nor chest pain. Yesterday she started to develop palpitation and shortness of breath. No reported wheezing. Patient thought it would go away rested and woke up this morning with palpitation, as well as shortness of breath. On trying to ambulate around she started to develop chest discomfort. Patient became anxious and started hyperventilating, developed generalized numbness and dizziness. Patient was brought to the emergency room for evaluation, she was found to be in SVT, patient given intravenous fluids. She converted to sinus rhythm. Consultation briefly with cardiology was made, recommendation was to send the patient overnight. She was then referred for admission. Past Medical History Past Medical History: Medication reconciliation pending verification from the patient's pharmacist Pulmonary Medical History: Reports: Asthma GI Medical History: Reports: Gastroesophageal Reflux Disease Psychiatric Medical History: Reports: Bipolar Disorder, Depression, General Anxiety Disorder Past Surgical History Past Surgical History: Reports: Appendectomy, Cholecystectomy, Hysterectomy - partial, Orthopedic Surgery - back surgery, left knee, Tonsillectomy Social History Information Source: Patient Smoking Status: Current Every Day Smoker Frequency of Alcohol Use: None Hx Recreational Drug Use: No Drugs: None Family History Family History: CAD, CVA, DM, Hyperlipidemia, Hypertension, Malignancy Parental Family History Reviewed: Yes Children Family History Reviewed: Yes Sibling(s) Family History Reviewed.: Yes Medication/Allergy Home Medications: Cyclobenzaprine HCl [Flexeril 10 Mg Tablet] 10 mg PO Q6H PRN #15 tablet No Home Medications 1 11/13/12 Oxycodone HCl/Acetaminophen [Percocet 5-325 mg Tablet] 1 - 2 tab PO ASDIR PRN # 25 tablet 11/13/12 Cyclobenzaprine HCl [Flexeril 10 Mg Tablet] 10 mg PO TID #30 tablet 11/24/12 Tramadol HCl [Ultram 50 mg Tablet] 50 mg PO ASDIR PRN #20 tablet 11/24/12 Methocarbamol [Robaxin 500 mg Tablet] 500 mg PO BID #14 tablet 03/31/16 Methylprednisolone [Medrol 4 mg Dosepack 21 Tab/Pack] 4 mg PO ASDIR PRN #21 tab.ds.pk 03/31/16 Oxycodone HCl/Acetaminophen [Percocet 5-325 mg Tablet] 1 - 2 tab PO ASDIR PRN # 25 tablet 03/31/16 Tramadol HCl [Ultram] 50 mg PO Q4HP PRN #15 tablet 05/21/16 Docusate Sodium [Colace 100 mg Capsule] 100 mg PO BID #60 capsule 07/30/16 Glycerin [Laxative Suppository] 1 each RC DAILY #10 supp.rect 07/30/16 Polyethylene Glycol 3350 [Miralax Powder 17 Gm/Packet] 17 gm PO DAILY #30 powd.pack 07/30/16 Oxycodone HCl/Acetaminophen [Percocet 5-325 mg Tablet] 1 - 2 tab PO Q4H PRN #12 tablet 08/02/16 Promethazine HCl [Phenergan 25 mg Tablet] 1 - 2 tab PO Q6H PRN #20 tablet Albuterol Sulfate [Proair HFA Inhalation Aerosol 8.5 gm MDI] 2 puff IH Q4H PRN # 1 mdi 08/15/16 Prednisone 20 mg PO DAILY #12 tablet 08/15/16 Cyclobenzaprine HCl [Flexeril 10 mg Tablet] 10 mg PO TIDP PRN #15 tab 12/01/16 Tramadol HCl [Ultram 50 mg Tablet] 50 mg PO ASDIR PRN #15 tablet 02/20/17 Acetaminophen with Codeine [Acetaminophen-Cod #3 Tablet] 1 each PO Q6HP PRN #15 tablet 03/29/17 Ondansetron [Zofran Odt 4 mg Tablet] 1 - 2 tab PO Q4H PRN #20 tab.rapdis Allergies/Adverse Reactions: amoxicillin Allergy (Verified 03/29/17 15:45) Penicillins Allergy (Verified 03/29/17 15:45) ibuprofen [From Motrin] Adverse Reaction (Verified 03/29/17 15:45) ulcer naproxen Adverse Reaction (Verified 03/29/17 15:45) ulcer Review of Systems Constitutional: ABSENT: chills, fever(s), headache(s), weight gain, weight loss Eyes: ABSENT: visual disturbances Ears: ABSENT: hearing changes Nose, Mouth, and Throat: ABSENT: mouth pain, sore throat Cardiovascular: PRESENT: chest pain, dyspnea on exertion, palpitations. ABSENT : edema, orthropnea Respiratory: PRESENT: cough, dyspnea. ABSENT: hemoptysis, sputum Gastrointestinal: PRESENT: nausea. ABSENT: abdominal pain, constipation, diarrhea, hematemesis, hematochezia, melena, vomiting Genitourinary: ABSENT: dysuria, hematuria Musculoskeletal: ABSENT: joint swelling Integumentary: ABSENT: pruritus, rash, wounds Neurological: PRESENT: dizziness. ABSENT: abnormal gait, abnormal speech, confusion, focal weakness, syncope Psychiatric: PRESENT: anxiety. ABSENT: depression, homidical ideation, suicidal ideation Endocrine: ABSENT: cold intolerance, heat intolerance, polydipsia, polyuria Hematologic/Lymphatic: ABSENT: easy bleeding, easy bruising Physical Exam Vital Signs: Temp Pulse Resp BP Pulse Ox 98.5 F 189 H 10 L 128/76 H 97 04/05/17 12:02 04/05/17 12:02 04/05/17 14:28 04/05/17 14:28 04/05/17 14:28 Intake & Output 04/04/17 04/05/17 04/06/17 06:59 06:59 06:59 Weight 98.7 kg General appearance: PRESENT: no acute distress, morbidly obese Head exam: PRESENT: atraumatic, normocephalic Eye exam: PRESENT: conjunctiva pink, EOMI, PERRLA. ABSENT: scleral icterus Ear exam: PRESENT: normal external ear exam Mouth exam: PRESENT: moist, neck supple, tongue midline Throat exam: ABSENT: post pharyngeal erythema, tonsillar erythema Neck exam: ABSENT: carotid bruit, JVD, lymphadenopathy, thyromegaly Respiratory exam: PRESENT: clear to auscultation kelvin. ABSENT: rales, rhonchi, wheezes Cardiovascular exam: PRESENT: RRR, tachycardia. ABSENT: diastolic murmur, rubs , systolic murmur Pulses: PRESENT: normal dorsalis pedis pul Vascular exam: PRESENT: normal capillary refill GI/Abdominal exam: PRESENT: normal bowel sounds, soft. ABSENT: distended, guarding, mass, organolmegaly, rebound, tenderness Rectal exam: PRESENT: deferred Extremities exam: PRESENT: full ROM, other - No calf muscle tenderness. ABSENT : calf tenderness, clubbing, pedal edema Neurological exam: PRESENT: alert, awake, oriented to person, oriented to place , oriented to time, oriented to situation Psychiatric exam: PRESENT: appropriate affect, normal mood. ABSENT: homicidal ideation, suicidal ideation Skin exam: PRESENT: dry, intact, warm. ABSENT: cyanosis, rash Results Laboratory Results: 04/05/17 12:33 04/05/17 12:33 04/05/17 04/05/17 04/05/17 12:33 12:33 12:33 WBC 14.4 H RBC 5.11 Hgb 15.4 Hct 44.9 MCV 88 MCH 30.1 MCHC 34.2 RDW 13.2 Plt Count 432 Seg Neutrophils % 66.5 Lymphocytes % 25.9 Monocytes % 5.5 Eosinophils % 1.5 Basophils % 0.6 Absolute Neutrophils 9.6 H Absolute Lymphocytes 3.7 Absolute Monocytes 0.8 Absolute Eosinophils 0.2 Absolute Basophils 0.1 Sodium 140.4 Potassium 4.8 Chloride 104 Carbon Dioxide 21 L Anion Gap 15 BUN 10 Creatinine 0.87 Est GFR ( Amer) > 60 Est GFR (Non-Af Amer) > 60 Glucose 120 H Calcium 10.4 H Total Bilirubin 0.8 AST 20 ALT 24 Alkaline Phosphatase 153 H Total Protein 9.2 H Albumin 4.8 TSH 0.72 04/05/17 04/05/17 12:33 12:33 Creatine Kinase 78 CK-MB (CK-2) 0.43 Troponin I < 0.012 Impressions: Chest/Abdomen CTA 04/05/17 15:54 IMPRESSION: NORMAL CTA OF THE CHEST. NO PULMONARY EMBOLI. Assessment & Plan - Diagnosis (1) Chest pressure Is this a current diagnosis for this admission?: Yes (2) Paroxysmal supraventricular tachycardia Is this a current diagnosis for this admission?: Yes (3) Exacerbation of asthma Is this a current diagnosis for this admission?: Yes - Time Time Spent: 30 to 50 Minutes - Plan Summary Plan Summary: Patient will be admitted to observation. We will serially monitor cardiac enzymes. We will consult cardiology for evaluation of SVT. In the meantime it might just be related to patient's asthma symptoms. I will try her on steroids and round the clock bronchodilators with Xopenex. DVT prophylaxis with Lovenox would be placed. I will hydrate the patient and recheck calcium level in the morning. Further testing depends and initial evaluations outlined above.
[2017-04-05 19:09] LABS: ADD ON TESTING BLD IN LAB ACKNOWLEDGE
[2017-04-05 19:29] LABS: MAGNESIUM 2.9 mg/dL (1.6-2.3)
[2017-04-05 20:06] LABS: CREATINE KINASE MB 0.32 ng/mL (<4.55)
[2017-04-05 20:07] LABS: TROPONIN I < 0.012 ng/mL
[2017-04-05] MEDS: LEVALBUTEROL HCL NEB 1.25 MG/3 ML AMPUL NEB SCH (20:26)
[2017-04-05] MEDS ORDERED: QUETIAPINE FUMARATE 100 MG TABLET PO SCH (22:00)
--- NOTE | 2017-04-05 22:41 | EKG REPORT ---
SEVERITY:- OTHERWISE NORMAL ECG - SINUS TACHYCARDIA : Confirmed by: El Rodgers 05-Apr-2017 22:41:02
--- NOTE | 2017-04-05 22:42 | EKG REPORT ---
SEVERITY:- ABNORMAL ECG - SINUS TACHYCARDIA ABNORMAL Q SUGGESTS ANTERIOR INFARCT REPOLARIZATION ABNORMALITY, PROB RATE RELATED : Confirmed by: El Rodgers 05-Apr-2017 22:41:16
[2017-04-06] MEDS: LEVALBUTEROL HCL NEB 1.25 MG/3 ML AMPUL NEB SCH ×4 (02:14→20:35)
[2017-04-06 02:47] LABS: CREATINE KINASE MB 0.25 ng/mL (<4.55); TROPONIN I < 0.012 ng/mL
[2017-04-06] MEDS: NORMAL SALINE 1000 ML 1,000 ML IV PRN (06:54)
[2017-04-06] MEDS: LANSOPRAZOLE 30 MG TAB.RAP.DR PO SCH ×2 (06:54→18:26)
[2017-04-06 09:02] LABS: ANION GAP 10 (5-19); BLOOD UREA NITROGEN 8 mg/dL (7-20); CALCIUM 8.9 mg/dL (8.4-10.2); CARBON DIOXIDE 18 mmol/L (22-30); CHLORIDE 112 mmol/L (98-107); CREATINE KINASE 62 U/L (30-135); CREATININE RESULT 0.66 mg/dL (0.52-1.25); GLUCOSE 99 mg/dL (75-110); SODIUM 139.7 mmol/L (137-145)
[2017-04-06 09:14] LABS: CREATINE KINASE MB 0.26 ng/mL (<4.55)
[2017-04-06 09:15] LABS: TROPONIN I < 0.012 ng/mL
[2017-04-06] MEDS: ENOXAPARIN SODIUM INJ 40 MG/0.4 ML DISP.SYRIN SUBCUT SCH (11:07)
[2017-04-06] MEDS: DOCUSATE SODIUM 100 MG CAPSULE PO SCH ×2 (11:08→18:26)
[2017-04-06] MEDS ORDERED: QUETIAPINE FUMARATE 100 MG TABLET PO SCH ×2 (13:29→20:00)
--- NOTE | 2017-04-06 13:35 | PDOC PROGRESS REPORT ---
Subjective Progress Note for:: 04/06/17 Subjective:: Patient's cough is better. No worsening shortness of breath, still have dyspnea on exertion, no reported chills or fever. No wheezing. No chest pain at this time, no nausea or vomiting as well. Physical Exam Vital Signs: Temp Pulse Resp BP Pulse Ox 97.8 F 89 18 96/55 L 99 04/06/17 04:24 04/06/17 11:45 04/06/17 08:52 04/06/17 04:24 04/06/17 04:24 Intake & Output 04/05/17 04/06/17 04/07/17 06:59 06:59 06:59 Intake Total 845 Balance 845 Weight 99.2 kg General appearance: PRESENT: no acute distress, morbidly obese Head exam: PRESENT: normocephalic Eye exam: PRESENT: EOMI Mouth exam: PRESENT: moist, neck supple Neck exam: ABSENT: JVD Respiratory exam: PRESENT: clear to auscultation kelvin. ABSENT: rhonchi, wheezes Cardiovascular exam: PRESENT: RRR. ABSENT: gallop GI/Abdominal exam: PRESENT: soft. ABSENT: distended, tenderness Extremities exam: ABSENT: pedal edema Neurological exam: PRESENT: alert, awake, oriented to person, oriented to place , oriented to time, oriented to situation Skin exam: PRESENT: dry, warm. ABSENT: cyanosis Results Laboratory Results: 04/06/17 08:38 04/06/17 08:38 Sodium 139.7 Potassium 4.0 Chloride 112 H Carbon Dioxide 18 L Anion Gap 10 BUN 8 Creatinine 0.66 Est GFR ( Amer) > 60 Est GFR (Non-Af Amer) > 60 Glucose 99 Calcium 8.9 04/05/17 04/05/17 04/06/17 19:30 19:30 01:40 Creatine Kinase 81 70 CK-MB (CK-2) 0.32 Troponin I < 0.012 04/06/17 04/06/17 04/06/17 01:40 08:38 08:38 Creatine Kinase 62 CK-MB (CK-2) 0.25 0.26 Troponin I < 0.012 < 0.012 Impressions: Chest/Abdomen CTA 04/05/17 15:54 IMPRESSION: NORMAL CTA OF THE CHEST. NO PULMONARY EMBOLI. Assessment & Plan - Diagnosis (1) Chest pressure Is this a current diagnosis for this admission?: Yes (2) Paroxysmal supraventricular tachycardia Is this a current diagnosis for this admission?: Yes (3) Exacerbation of asthma Is this a current diagnosis for this admission?: Yes - Time Time Spent with patient: 25-34 minutes - Plan Summary Plan Summary: Obtain 2-D echocardiogram. Obtain room air oxygenation on ambulation. Continue hydration, steroids, and bronchodilators. Increase activity. Continue supportive care. We will try to decrease the patient's Seroquel, may be contributing to her tachycardia.
[2017-04-06] MEDS ORDERED: ONDANSETRON HCL INJ/PF 4 MG/2 ML SDV IV PRN (13:40)
[2017-04-06] MEDS ORDERED: PREDNISONE 20 MG TABLET PO ONE (13:45)
--- NOTE | 2017-04-06 14:55 | XCELERA REPORT ---
[address] [address] Transthoracic Echocardiogram Report Name: MAURY RAM Age: 36 yrs Gender: Female : 1980 Patient Status: Inpatient Patient Location: [id number]\425\[id number]\A Study Date: 04/06/2017 10:10 AM Height: 65 in Weight: 218 lb BSA: 2.1 m2 Procedure: A two-dimensional transthoracic echocardiogram with color flow and Doppler was performed. Study Quality: Fair. Reason For Study: SVT / SY History: SVT / SY. Ordering Physician: MAYDA BLOCK Performed By: Ana Lancaster Interpretation Summary The left ventricle is normal in size. There is normal left ventricular wall thickness. LV EF is > than 65% Left ventricular systolic function is normal. Doppler measurements suggest normal left ventricular diastolic function The left ventricular wall motion is normal. There is no thrombus. There is no ventricular septal defect visualized. The right atrium is normal. The left atrial size is normal. The interatrial septum is intact with no evidence for an atrial septal defect. There is no evidence of mitral valve prolapse. There is no mitral valve stenosis. There is no mitral regurgitation noted. There is no aortic valve stenosis There is no LVOT obstruction. No aortic regurgitation is present. There is no tricuspid stenosis. There is a trace amount of tricuspid regurgitation Unable to calculate RVSP due to insufficient TR jet. There is no pericardial effusion. MMode/2D Measurements \T\ Calculations RVDd: 3.0 cm LVIDd: 4.3 cm FS: 40.1 % Ao root diam: 2.5 cm IVSd: 0.90 cm LVIDs: 2.6 cm EDV(Teich): 82.0 ml LVPWd: 0.85 cm ESV(Teich): 23.7 ml Ao root area: 4.8 cm2 EF(Teich): 71.1 % LA dimension: 3.2 cm Doppler Measurements \T\ Calculations MV E max mait: MV P1/2t max mati: Ao V2 max: LV V1 max P.9 cm/sec 85.9 cm/sec 150.2 cm/sec 4.5 mmHg MV A max mati: MV P1/2t: 62.6 msec Ao max PG: LV V1 max: 61.7 cm/sec 9.0 mmHg 106.1 cm/sec MV E/A: 1.4 MVA(P1/2t): 3.5 cm2 MV dec slope: 401.9 cm/sec2 MV dec time: 0.21 sec PA V2 max: 83.9 cm/sec PA max P.8 mmHg Left Ventricle The left ventricle is normal in size. There is normal left ventricular wall thickness. LV EF is > than 65%. Left ventricular systolic function is normal. Doppler measurements suggest normal left ventricular diastolic function. The left ventricular wall motion is normal. There is no thrombus. There is no ventricular septal defect visualized. Right Ventricle The right ventricle is grossly normal size. Atria The right atrium is normal. The left atrial size is normal. The interatrial septum is intact with no evidence for an atrial septal defect. Mitral Valve There is no evidence of mitral valve prolapse. There is no vegetation seen on the mitral valve. There is no mitral valve stenosis. There is no mitral regurgitation noted. Aortic Valve The aortic valve is trileaflet. The aortic valve opens well. There is no aortic valvular vegetation. There is no aortic valve stenosis. There is no LVOT obstruction. No aortic regurgitation is present. Tricuspid Valve There is no tricuspid stenosis. There is a trace amount of tricuspid regurgitation. Unable to calculate RVSP due to insufficient TR jet. Pulmonic Valve There is no pulmonic valvular stenosis. There is no pulmonic valvular regurgitation. Great Vessels The aortic root is normal size. Effusions There is no pericardial effusion. : MAYDA BLOCK > Batool Hinson
[2017-04-06] MEDS ORDERED: DIGOXIN 0.25 MG TABLET PO ONE (15:30)
[2017-04-06] MEDS ORDERED: NICOTINE 14 MG/24 HR PATCH.TD24 TD ONE (20:15)
[2017-04-07] MEDS: LEVALBUTEROL HCL NEB 1.25 MG/3 ML AMPUL NEB SCH ×3 (02:22→13:16)
[2017-04-07] MEDS: NORMAL SALINE 1000 ML 1,000 ML IV PRN (05:06)
[2017-04-07] MEDS: LANSOPRAZOLE 30 MG TAB.RAP.DR PO SCH (05:06)
--- NOTE | 2017-04-07 07:53 | CONSULTATION REPORT E ---
Consultation Report NAME: MAURY RAM : 1980 AGE: 36Y DATE: 04/06/17 425 A TO: CHRISTY HERNÁNDEZ M.D. FROM: Requesting Physician Note: The patient was seen between 10:00 a.m. and 10:40 a.m.; a total of 40 minutes spent on this patient. Already, last night the ER physician called me about the patient. The patient was discussed with me by the ER physician. I told him to give the patient IV fluids but I did not get the history that the patient was on high doses of Seroquel, and to watch the patient on telemetry. HISTORY OF PRESENT ILLNESS: Patient is a 36-year-old female with known history of anxiety, depression, and asthma, with asthma being more of a coughing than wheezing, started since the day before admission. She started having more cough with her having used a lot of inhalers with ProAir, without any symptom relief. Subsequently, she started having palpitations, and hence came to the emergency room where she was found to be in SVT. The patient was given IV fluids, and the patent converted to sinus tachycardia but the patient complained of shortness of breath with even minimal exertion. There was no further wheezing. There was no sputum production. The cough was dry. There was no chest pain or discomfort. There is no PND or orthopnea. There is no leg edema. There is no TIA or CVA symptoms. There is no dizziness or syncope or near-syncope. PAST MEDICAL HISTORY: 1. History of asthma with cough being the asthma equivalent without any wheezing. 2. She has symptoms suggestive of obstructive sleep apnea but has not had a sleep study. 3. There is no history of hypertension. 4. No history of diabetes mellitus. 5. No history of thyroid disease. 6. There is no history of hyperlipidemia. 7. No history of TIA or CVA. 8. No history of chronic kidney disease. 9. No thyroid disease. 10. No history of diabetes mellitus. 11. History of bipolar disorder with depression and anxiety. 12. Gastroesophageal reflux disease. PAST SURGICAL HISTORY: Positive for: 1. Appendectomy. 2. Cholecystectomy. 3. Hysterectomy partial. 4. Back surgery. 5. Left knee surgery. 6. Tonsillectomy. SOCIAL HISTORY: The patient does smoke every day. There is no history of EtOH abuse. ALLERGIES: 1. Penicillin. 2. Ibuprofen. 3. Naproxen. FAMILY HISTORY: Positive for CAD, CVA, congestive heart failure, diabetes mellitus, hyperlipidemia, hypertension, and malignancy. MEDICATIONS: Include: 1. Acetaminophen 650 mg p.o. every 4 hours p.r.n. 2. Digoxin. 3. Colace 100 mg p.o. b.i.d. 4. Lovenox 40 mg subcutaneous p.r.n. 5. Normal saline at 125 mL/h. 6. Prevacid 30 mg p.o. b.i.d. 7. Xopenex 1.25 mg nebulizer treatment every 6 hours. 8. Zofran 4 mg IV every 4 hours p.r.n. 9. Deltasone 40 mg p.o. x1, and 40 mg p.o. daily. 10. Seroquel 600 mg p.o. daily. REVIEW OF SYSTEMS: CONSTITUTIONAL: Complains of generalized fatigue and discomfort but no fever, chills, or rigors. HEAD: No history of headaches or head injury. No history of dizziness. EYES: No history of amblyopia or diplopia. No history of amaurosis fugax. EARS: No history of tinnitus. No history of vertigo. No history of recurrent ear infections. No history of tinnitus. No history of hearing loss. NOSE: No history of nasal polyps. No history of nose bleeds. No history of hay fever. MOUTH: No history of altered taste sensation. No history of ulcers in the mouth. No history of bleeding from the gums. THROAT: No history of odynophagia or dysphagia. No history of recurrent sore throat. SKIN: There is no pruritus. There is no yellowish discoloration of the skin. There is no psoriasis. There is no skin cancer. NECK: There are no symptoms of c-spine arthritis. No history of swelling in the neck, painless or painful. There is no goiter. LUNGS: As mentioned early, dry cough which seems to be asthma equivalent, and this will clear away with the patient being on steroids. The patient has symptoms suggestive of obstructive sleep apnea. She snores and when she wakes up she feels very tired most of the days. There is no direct witness to the patient stopping breathing since she sleeps alone. There is no history of pulmonary embolism. No history of pleuritic chest pain. No history of hemoptysis. CARDIAC: No history of hypertension. No history of coronary artery disease, ID, or anginal symptoms. No history of congenital heart disease. No history of congestive heart failure. No history of post-exertion SVT. No history of syncope but patient thought with the other SVT, she would nearly pass out. The SVT lasted for about a half an hour or so, and was relieved with IV fluids. There is no leg edema. GASTROINTESTINAL: History of GERD present. No history of fatty food intolerance or history of GI bleed. No history of altered bowel movements. MUSCULOSKELETAL: Denies any history of arthritis but has chronic back pain. There is no history of collagen vascular disease. METABOLIC: No history of hyperlipidemia. History of obesity present. No history of gout. RENAL: No history of chronic kidney disease. No symptoms of UTI. No history of hematuria, pyuria, or dysuria. ENDOCRINE: No history of diabetes mellitus or thyroid disease. No history of polydipsia or polyuria. No history of heat or cold intolerance. No history of hirsutism. No history of excessive sweating. CENTRAL NERVOUS SYSTEM: No history of TIA or CVA. No history of seizures, headaches, or migraines. No history of gait imbalance. PSYCHIATRIC: History of bipolar disorder under control. History of depression and anxiety but the patient is on a very high dose of Seroquel which can cause tachycardia. There is no suicidal ideation. There is no homicidal ideation. VASCULAR: There is no history of DVT. No history of calf or buttock claudication. HEMATOLOGIC: No history of bleeding diathesis. No history of clotting disorders. PHYSICAL EXAMINATION: GENERAL: On examination, the patient is moderately obese, well groomed, in no acute distress. She was lying down flat in bed. VITAL SIGNS: She is afebrile with a temperature of 98 degrees Fahrenheit, pulse is 104 beats per minute, blood pressure 112/58, respirations are 18 per minute, O2 sats are 98% on room air. HEAD: Atraumatic, normocephalic. EYES: Pupils are equal, round, regular, and reactive to light and accommodation. Extraocular movements are normal. There is no conjunctival pallor. There is no sclerae icterus. EARS: Tympanic membranes are intact. External auditory canals are clear. NOSE: There is no deviated nasal septum. There is no inflammation of the nasal mucous membranes. MOUTH: Mucous membranes of the mouth are moist. Tongue is moist. There are no ulcers. There is no bleeding from the gums. THROAT: There is no redness of the oropharynx. There are no exudates. SKIN: There are no skin rashes. There is no petechiae or ecchymosis. There are no skin lesions. NECK: Supple. There is no lymphadenopathy. There is no goiter. Carotids are equal. There are no bruits. There is no JVD. Trachea is central. LUNGS/CHEST: Show diminished air entry, prolonged expiration. Otherwise, without any rhonchi, rales, or wheezing. On percussion, there is hyperresonance. HEART: S1, S2 is heard. There is no S3 gallop. There is no S4 gallop. There is a systolic murmur left sternal border in the apex. There is no rub. ABDOMEN: Obese, nontender. There is no hepatosplenomegaly. Bowel sounds are well heard. EXTREMITIES: Femorals are diminished. There is no femoral bruit. Leg pulses are well heard. There is no pedal edema. There is no DVT or cellulitis. There is no cyanosis or clubbing. There is no calf tenderness. CENTRAL NERVOUS SYSTEM: The patient is conscious, awake, alert, oriented x3 with no focal deficits. PSYCHIATRIC: The patient's judgement and insight are intact. Her affect is normal. IMAGING STUDIES: The patient's first EKG in the ER shows an SVT with a rate of 179 beats per minute. The patient's subsequent EKG shows sinus tachycardia; otherwise, within normal limits. The patient's chest and abdomen CTA shows normal CT of the chest with no pulmonary emboli. The patient's echocardiogram shows that the left ventricular chamber size is normal. There is no LVH, and ejection fraction is greater than 65%. The systolic function is normal. Doppler measurements suggest normal left ventricular diastolic function. There is no wall motion abnormality. There is no thrombus. There is no ventricular septal defect or interatrial septal defect noted. There is no evidence of mitral valve collapse. There is no mitral valve stenosis. There is no mitral regurgitation noted. There is no aortic valve stenosis. There is no aortic regurgitation. There is no tricuspid stenosis. There is a trace amount of tricuspid regurgitation, unable to calculate diastolic or systolic pressure due to TR jet. There is no ____. LABORATORY DATA: White count of 14,400, hemoglobin 15.4, hematocrit 44.9, platelet 432,000. D-dimer 1.65. Sodium 139.7, potassium 4.0, chloride 112, CO2 18, BUN 8, creatinine 0.66, GFR is greater than 60. Troponin I and CPK-MB are negative x3. Calcium 8.9. Magnesium yesterday 2.9. TSH 0.72. IMPRESSION: 1. SVT. Maybe multifactorial secondary to patient's acute asthma attack, increased use of anti-COPD inhalers and anxiety, and also due to high doses of Seroquel which can cause tachycardia. 2. Asthma with cough, being the asthma equivalent, resolved with steroids. 3. Anxiety. 4. Depression. 5. Tobacco abuse disorder. 6. Gastroesophageal reflux disease. 7. Obesity. 8. Symptoms suggestive of obstructive sleep apnea. RECOMMENDATIONS: We will hydrate the patient. I have asked the patient to cut down on her Seroquel but she wants to talk to her psychiatrist since she has been on this for a long time, and to start the patient on some digoxin to see if this will prevent the patient from going into SVT since the patient's blood pressure is borderline; hence, cannot use Cardizem. Note: The patient's medications were reviewed, and all questions from the patient have been answered. The patient most likely can be discharged in the morning. This was discussed with the Hospitalist. Note: Forty minutes spent on this patient, more than 50% of the time spent on direct patient care, and also reviewing the patient's medications, and also formulating a treatment plan. The patient will benefit from a 30 day event monitor as an outpatient. This has been discussed with the patient. I tried to contact the patient's psychiatrist, Dr. Pinzon of the [facility] but I was unable to get through. We will try later. The patient is to followup with me in the office since her friend's relative is a patient of mine. Hence, my cell number and office number were given for the patient to call. I discussed with the Hospitalist, the patient will be discharged in the a.m. This is a case of moderate complexity medical decision making. DICTATING PHYSICIAN: CHRISTY HERNÁNDEZ M.D. [id number] PHY#: [id number] ID: [id number] JOB#: [id number] ACCT: [id number] cc:CHRISTY HERNÁNDEZ M.D. >
[2017-04-07] MEDS: DOCUSATE SODIUM 100 MG CAPSULE PO SCH (08:24)
[2017-04-07] MEDS: ENOXAPARIN SODIUM INJ 40 MG/0.4 ML DISP.SYRIN SUBCUT SCH (08:25)
[2017-04-07] MEDS ORDERED: DIGOXIN 0.25 MG TABLET PO SCH (10:00)
[2017-04-07] MEDS ORDERED: PREDNISONE 20 MG TABLET PO SCH (10:00)
[2017-04-07] MEDS ORDERED: NICOTINE 14 MG/24 HR PATCH.TD24 TD SCH (10:00)
--- NOTE | 2017-04-07 12:07 | PDOC DISCHARGE SUMMARY ---
General - Admit/Disc Date/PCP Admission Date/Primary Care Provider: 04/05/17 18:29 Discharge Date: 04/07/17 - Discharge Diagnosis (1) Chest pressure Is this a current diagnosis for this admission?: Yes (2) Paroxysmal supraventricular tachycardia Is this a current diagnosis for this admission?: Yes (3) Hypercalcemia Is this a current diagnosis for this admission?: Yes (4) Exacerbation of asthma Is this a current diagnosis for this admission?: Yes - Additional Information Resuscitation Status: Full Code Discharge Diet: Cardiac - low-fat low-salt Discharge Activity: Activity As Tolerated, Balance Activity w/Rest Home Medications: Quetiapine Fumarate [Seroquel Xr] 600 mg PO QPM 04/06/17 Digoxin [Lanoxin 0.25 mg Tablet] 0.25 mg PO DAILY #30 tablet 04/07/17 Levalbuterol Tartrate [Xopenex Hfa] 1 puff IH Q4H PRN #1 hfa.aer.ad 04/07/17 Additional Information: Event recorder as an outpatient with Dr. Marshall entreated to 5 days. Discussed with primary psychiatry regarding decreasing the dose of Seroquel. History of Present Illness Patient complains of: Palpitations History of Present Illness: MAURY RAM is a 36 year old female, with history of asthma and anxiety, has been having cough for the past week but without any shortness of breath. Patient has been using her inhaler w/ pro-air more frequently but not yesterday. Her asthma is more up coughing rather than wheezing. No sinus congestion, sore throat , fever nor chest pain. Yesterday she started to develop palpitation and shortness of breath. No reported wheezing. Patient thought it would go away rested and woke up this morning with palpitation, as well as shortness of breath. On trying to ambulate around she started to develop chest discomfort. Patient became anxious and started hyperventilating, developed generalized numbness and dizziness. Patient was brought to the emergency room for evaluation, she was found to be in SVT, patient given intravenous fluids. She converted to sinus rhythm. Consultation briefly with cardiology was made, recommendation was to send the patient overnight. She was then referred for admission. Hospital Course Hospital Course: The patient was admitted to telemetry. Patient was hypercalcemic and therefore was hydrated with saline, hypercalcemia resolved. The patient's initial SVT converted to sinus tachycardia. No further SVT was noted. Patient however would have episodes of sinus tachycardia with activity however. Cardiology was consulted. Echocardiogram did not reveal any valvular defects nor septal defects. Ejection fraction was normal. Cardiology recommended decreasing Seroquel however the patient will discuss with her psychiatrist regarding cutting the dose. Digoxin was started. Patient's tachycardia improved. Of note also that the patient had coughing related to asthma, that eventually improved with Xopenex and steroids. The rest of the hospital station unremarkable. Physical Exam Vital Signs: Temp Pulse Resp BP Pulse Ox 97.8 F 98 20 107/48 L 100 04/07/17 07:45 04/07/17 07:45 04/07/17 07:45 04/07/17 07:45 04/07/17 07:45 Intake & Output 04/06/17 04/07/17 04/08/17 06:59 06:59 06:59 Intake Total 845 3591 Output Total 300 Balance 845 3291 Weight 99.2 kg 99.2 kg General appearance: PRESENT: no acute distress, cooperative, obese Head exam: PRESENT: normocephalic Eye exam: PRESENT: EOMI Mouth exam: PRESENT: moist, neck supple Neck exam: ABSENT: JVD Respiratory exam: PRESENT: clear to auscultation kelvin. ABSENT: rhonchi, wheezes Cardiovascular exam: PRESENT: RRR. ABSENT: gallop GI/Abdominal exam: PRESENT: normal bowel sounds, soft. ABSENT: tenderness Extremities exam: ABSENT: pedal edema Neurological exam: PRESENT: alert, awake, oriented to person, oriented to place , oriented to time, oriented to situation Skin exam: PRESENT: dry, warm. ABSENT: cyanosis Results Laboratory Results: 04/06/17 08:38 04/05/17 04/05/17 04/06/17 19:30 19:30 01:40 Creatine Kinase 81 70 CK-MB (CK-2) 0.32 Troponin I < 0.012 04/06/17 04/06/17 04/06/17 01:40 08:38 08:38 Creatine Kinase 62 CK-MB (CK-2) 0.25 0.26 Troponin I < 0.012 < 0.012 Impressions: Chest/Abdomen CTA 04/05/17 15:54 IMPRESSION: NORMAL CTA OF THE CHEST. NO PULMONARY EMBOLI. Qualifiers PATEINT BEING DISCHARGED WITH ANY OF THE FOLLOWING DIAGNOSIS?: No Plan Discharge Plan: Follow-up with primary care physician in one week. Follow-up with Dr. Marshall in 3 to 5 days for event recorder. Time Spent: Less than 30 Minutes
[2017-04-07 14:17] VITALS: BP 109/66
== END 2017-04-07 14:15 | disposition home or self-care (01) ==
LOC: ER 11:49 → EH 18:29 → UNDOADMOB 18:43 → EH 18:43 → 4S 21:56
PROC: 3E0F7GC Introduction of Other Therapeutic Substance into Respiratory Tract, Via Natural or Artificial Opening (ICD-10-PCS; principal; 2017-04-05)
DX: R07.89 Other chest pain (principal); I47.1 Supraventricular tachycardia; E83.52 Hypercalcemia; J45.901 Unspecified asthma with (acute) exacerbation; R06.4 Hyperventilation; F17.210 Nicotine dependence, cigarettes, uncomplicated; R06.83 Snoring; R53.83 Other fatigue; K21.9 Gastro-esophageal reflux disease without esophagitis; E66.09 Other obesity due to excess calories; F31.9 Bipolar disorder, unspecified; F41.9 Anxiety disorder, unspecified; Z90.49 Acquired absence of other specified parts of digestive tract; Z82.49 Family history of ischemic heart disease and other diseases of the circulatory system; Z90.710 Acquired absence of both cervix and uterus; Z82.3 Family history of stroke; Z68.36 Body mass index [BMI] 36.0-36.9, adult
CPT/HCPCS: 93005; 94640 ×4; 99285; 36415 ×2; 82553 ×2; 82550 ×2; 83735; 84443; 85025; 80048; 80053; 84484 ×2; 85379; 93306; 71275; 93010; 94761; J3490 ×7; J1650 ×2; J7512 ×2; J7030 ×2; G0378

== ENCOUNTER 2017-04-11 16:53 | Emergency (ER) | payer SELFPAY ==
--- NOTE | 2017-04-11 17:41 | EKG REPORT ---
SEVERITY:- BORDERLINE ECG - SINUS RHYTHM BORDERLINE T ABNORMALITIES, DIFFUSE LEADS : Confirmed by: Batool Hinson MD 11-Apr-2017 17:40:50
--- NOTE | 2017-04-11 18:27 | ER Document Report ---
ED Cardiac - General Mode of Arrival: Medic Information source: Patient, [facility] Records TRAVEL OUTSIDE OF THE [place] IN LAST 30 DAYS: No - HPI Patient complains to provider of: Other - Chest Pressure Use of: denies: Caffeine Is the pain a: New problem Quality of pain: Pressure Chest pain radiation location: None Chest pain precipitating factors: At Rest Cardiac risk factors: Smoker Associated symptoms: Palpitations - Heart racing, Shortness of breath Similar symptoms previously: Yes Recently seen / treated by doctor: Yes - [facility] 04/05/2017 <ROBERT LEE - Last Filed: 04/11/17 18:37> <JAVI SCOTT - Last Filed: 04/11/17 20:35> - General Chief Complaint: Chest Pressure Stated Complaint: CHEST PRESSURE Time Seen by Provider: 04/11/17 17:30 Notes: Patient is a 36-year-old female, who was diagnosed with SVT last week, presenting to the emergency department with concerns of chest pressure. Patient states that her heart has been racing and she has been short of breath since she was discharged last week from here at home H. Patient was prescribed digoxin, which she states that not helped much. Patient denies any recent long trips or taking any hormones. (ROBERT LEE) - Related Data Allergies/Adverse Reactions: amoxicillin Allergy (Verified 03/29/17 15:45) Penicillins Allergy (Verified 03/29/17 15:45) ibuprofen [From Motrin] Adverse Reaction (Verified 03/29/17 15:45) ulcer naproxen Adverse Reaction (Verified 03/29/17 15:45) ulcer Past Medical History - General Information source: Patient, [facility] Records - Social History Smoking Status: Current Every Day Smoker Frequency of alcohol use: None Drug Abuse: None Family History: Reviewed & Not Pertinent, CAD, CVA, DM, Hyperlipidemia, Hypertension, Malignancy - Past Medical History Cardiac Medical History: Reports: Other - SVT Pulmonary Medical History: Reports: Hx Asthma Renal/ Medical History: Reports: Hx Kidney Stones, Hx Ovarian Cysts GI Medical History: Reports: Hx Gastroesophageal Reflux Disease, Hx Colonoscopy , Hx Endoscopy Musculoskeltal Medical History: Reports Hx Musculoskeletal Deformity, Reports Hx Musculoskeletal Trauma Psychiatric Medical History: Reports: Hx Anxiety, Hx Bipolar Disorder, Hx Depression Traumatic Medical History: Reports: Hx Fractures Past Surgical History: Reports: Hx Appendectomy, Hx Cholecystectomy, Hx Hysterectomy - partial, Hx Orthopedic Surgery - back surgery, left knee, Hx Tonsillectomy - Immunizations Immunizations up to date: No Hx Diphtheria, Pertussis, Tetanus Vaccination: No <ROBERT LEE - Last Filed: 04/11/17 18:37> Review of Systems - Review of Systems Constitutional: No symptoms reported EENT: No symptoms reported Cardiovascular: See HPI, Chest pain - Pressure, Heart racing Respiratory: See HPI, Short of breath Gastrointestinal: No symptoms reported Genitourinary: No symptoms reported Female Genitourinary: No symptoms reported Musculoskeletal: No symptoms reported Skin: No symptoms reported Hematologic/Lymphatic: No symptoms reported Neurological/Psychological: No symptoms reported -: Yes All other systems reviewed and negative <ROBERT LEE - Last Filed: 04/11/17 18:37> Physical Exam <ROBERT LEE - Last Filed: 04/11/17 18:37> <JAVI SCOTT - Last Filed: 04/11/17 20:35> - Vital signs Vitals: Temp Pulse Resp BP Pulse Ox 98.8 F 91 18 140/87 H 98 04/11/17 17:18 04/11/17 17:18 04/11/17 17:18 04/11/17 17:18 04/11/17 17:18 - Notes Notes: GENERAL: Alert, interacts well. No acute distress. HEAD: Normocephalic, atraumatic. EYES: Pupils equal, round, and reactive to light. Extraocular movements intact. ENT: Oral mucosa moist, tongue midline. NECK: Full range of motion. Supple. Trachea midline. LUNGS: Clear to auscultation bilaterally, no wheezes, rales, or rhonchi. No respiratory distress. HEART: Regular rate and rhythm. No murmurs, gallops, or rubs. ABDOMEN: Soft, non-tender. Non-distended. Bowel sounds present in all 4 quadrants. EXTREMITIES: Moves all 4 extremities spontaneously. No edema, radial and dorsalis pedis pulses 2/4 bilaterally. No cyanosis. Clubbing of fingernails bilaterally. NEUROLOGICAL: Alert and oriented x3. Normal speech. PSYCH: Normal affect, normal mood. SKIN: Warm, dry, normal turgor. No rashes or lesions noted. (ROBERT LEE) Course <ROBERT LEE - Last Filed: 04/11/17 18:37> - Laboratory Result Diagrams: 04/11/17 18:20 04/11/17 18:20 <JAVI SCOTT - Last Filed: 04/11/17 20:35> - Re-evaluation Re-evalutation: 04/11/17 20:25 CBC shows leukocytosis of 14.2 without left shift, CMP unremarkable, enzymes negative, TSH normal, T4 normal, T3 of 6.11, digoxin level low at 0.78. Patient does reveal after further questioning that she only started taking the digoxin yesterday. She has also not followed up with Dr. Hinson as an outpatient, has not yet gotten her event monitor. Discussed with patient that I will not adjust her digoxin dose at this time she has been taking it for only 24 hours. Patient needs follow-up with Dr. Hinson as an outpatient to get an event monitor. She states she was supposed to get on discharge but they never gave it to her. She does have Dr. Marshall's office number and cell phone number and she will get in touch with him personally. On ambulation patient did not become hypoxic or tachycardic, she was not short of breath. EKG is nonischemic. She did not have any tachycardia SVT or otherwise on the monitor during her stay. (JAVI SCOTT) - Vital Signs Vital signs: Temp Pulse Resp BP Pulse Ox 98.8 F 85 16 133/72 H 98 04/11/17 17:18 04/11/17 19:04 04/11/17 19:04 04/11/17 19:04 04/11/17 19:04 - Laboratory Laboratory results interpreted by me: 04/11/17 04/11/17 04/11/17 18:20 18:20 18:20 WBC 14.2 H Absolute Neutrophils 9.5 H BUN 6 L Free T3 pg/mL 6.11 H Digoxin 0.78 L - EKG Interpretation by Me Additional EKG results interpreted by me: 04/11/17 20:26 EKG shows sinus rhythm at a rate of 88, normal axis, normal intervals, no ST segment elevations or depressions, there are nonspecific T-wave inversions noted in V2 and V3 with rapid R-wave progression per my interpretation. (JAVI SCOTT) Procedures - Ultrasound/Bedside Ultrasound/Bedside Time completed: 18:20 - Additional Procedures Ultrasound Guided IV Time performed: 18:20 - Ultrasound guided IV insertion <ROBERT LEE - Last Filed: 04/11/17 18:37> Discharge <ROBERT LEE - Last Filed: 04/11/17 18:37> <JAVI SCOTT - Last Filed: 04/11/17 20:35> - Discharge Clinical Impression: Hyperthyroidism, Subtherapeutic digoxin Condition: Stable Disposition: HOME, SELF-CARE Additional Instructions: Today your thyroid function was elevated (T3). This can contribute to rapid heartbeat and your supraventricular tachycardia. You will need follow-up with your primary care physician to have this tract and rechecked. It is very important that you get an event monitor. Please call Dr. Marshall's office and let them know that you did not get your event monitor on discharge from the hospital. Asked them if they would prefer to up with an event monitor before you see him for your initial appointment in April. He will want to have the event monitor completed before you see him. When you talk to Dr. Marshall's office and ask them when they plan to recheck your digoxin level. Today it was low at 0.78. You have only been taking the pill for 24 hours, you need to be taking it for several days before we check a level and adjust your dosage. [facility] Attestation: 04/11/17 20:35 I personally performed the services described in the documentation, reviewed and edited the documentation which was dictated to the scribe in my presence, and it accurately records my words and actions. (JAVI SCOTT) [facility] Documentation - Scribe Written by Marciano:: Marciano Denise, 04/11/2017 1822 acting as scribe for :: Payton <ROBERT LEE - Last Filed: 04/11/17 18:37>
[2017-04-11 19:07] LABS: ABSOLUTE BASOPHILS # (AUTO) 0.1 10^3/uL (0.0-0.2); ABSOLUTE EOSINOPHILS # (AUTO) 0.2 10^3/uL (0.0-0.6); ABSOLUTE LYMPHOCYTES (AUTO) 3.7 10^3/uL (0.5-4.7); ABSOLUTE MONOCYTES (AUTO) 0.7 10^3/uL (0.1-1.4); ABSOLUTE NEUT (AUTO) 9.5 10^3/uL (1.7-8.2); BASOPHILS % (AUTO) 0.6 % (0-2); EOSINOPHILS % (AUTO) 1.2 % (0-6); HEMATOCRIT 40.4 % (36.0-47.0); HEMOGLOBIN 13.6 g/dL (12.0-15.5); HGB HCT DIFFERENCE 0.4; LYMPHOCYTES % (AUTO) 26.3 % (13-45); MEAN CORPUSCULAR HGB CONC 33.7 g/dL (32.0-36.0); MEAN CORPUSCULAR VOLUME 89 fl (80-97); RED BLOOD COUNT 4.54 10^6/uL (3.72-5.28); RED CELL DISTRIBUTION WIDTH 13.3 % (11.5-14.0); SEGMENTED NEUTROPHILS % (AUTO) 66.9 % (42-78); WHITE BLOOD COUNT 14.2 10^3/uL (4.0-10.5)
[2017-04-11 19:27] LABS: ALANINE AMINOTRANSFERASE 19 U/L (9-52); ALBUMIN 4.3 g/dL (3.5-5.0); ALKALINE PHOSPHATASE 99 U/L (38-126); ANION GAP 11 (5-19); ASPARTATE AMINO TRANSFERASE 14 U/L (14-36); BILIRUBIN,DIRECT 0.4 mg/dL (0.0-0.4); BILIRUBIN,TOTAL 0.5 mg/dL (0.2-1.3); BLOOD UREA NITROGEN 6 mg/dL (7-20); CALCIUM 10.1 mg/dL (8.4-10.2); CARBON DIOXIDE 25 mmol/L (22-30); CHLORIDE 105 mmol/L (98-107); CREATINE KINASE 49 U/L (30-135); CREATININE RESULT 0.63 mg/dL (0.52-1.25); DIGOXIN 0.78 ng/mL (0.8-2.0); GLUCOSE 96 mg/dL (75-110); POTASSIUM 3.9 mmol/L (3.6-5.0); SODIUM 140.9 mmol/L (137-145); TOTAL PROTEIN 7.8 g/dL (6.3-8.2)
[2017-04-11 19:35] LABS: CREATINE KINASE MB 0.29 ng/mL (<4.55)
[2017-04-11 19:37] LABS: TROPONIN I < 0.012 ng/mL
[2017-04-11 19:41] LABS: FREE T3 6.11 pg/mL (2.77-5.27)
[2017-04-11 19:54] LABS: THYROID STIMULATING HORMONE 1.25 uIU/mL (0.47-4.68)
[2017-04-11 20:55] VITALS: BP 134/89
== END 2017-04-11 20:55 | disposition home or self-care (01) ==
LOC: ER 16:53
DX: E05.90 Thyrotoxicosis, unspecified without thyrotoxic crisis or storm (principal); R07.89 Other chest pain; I47.1 Supraventricular tachycardia; Z91.14 Patient's other noncompliance with medication regimen; D72.829 Elevated white blood cell count, unspecified; R06.02 Shortness of breath; J45.909 Unspecified asthma, uncomplicated; F17.200 Nicotine dependence, unspecified, uncomplicated; Z88.0 Allergy status to penicillin; Z82.49 Family history of ischemic heart disease and other diseases of the circulatory system
CPT/HCPCS: 36415; 80053; 80162; 82550; 82553; 84439; 84443; 84481; 84484; 85025; 93005; 93010; 99285

== ENCOUNTER 2017-04-15 13:37 | Emergency (ER) | payer SELFPAY ==
[2017-04-15 14:16] LABS: ABSOLUTE BASOPHILS # (AUTO) 0.1 10^3/uL (0.0-0.2); ABSOLUTE EOSINOPHILS # (AUTO) 0.2 10^3/uL (0.0-0.6); ABSOLUTE LYMPHOCYTES (AUTO) 3.4 10^3/uL (0.5-4.7); ABSOLUTE MONOCYTES (AUTO) 0.8 10^3/uL (0.1-1.4); ABSOLUTE NEUT (AUTO) 8.3 10^3/uL (1.7-8.2); BASOPHILS % (AUTO) 0.7 % (0-2); EOSINOPHILS % (AUTO) 1.5 % (0-6); HEMATOCRIT 38.5 % (36.0-47.0); HEMOGLOBIN 12.8 g/dL (12.0-15.5); HGB HCT DIFFERENCE -0.1; LYMPHOCYTES % (AUTO) 26.5 % (13-45); MEAN CORPUSCULAR HEMOGLOBIN 29.8 pg (27.0-33.4); MEAN CORPUSCULAR HGB CONC 33.1 g/dL (32.0-36.0); MEAN CORPUSCULAR VOLUME 90 fl (80-97); MONOCYTES % (AUTO) 6.3 % (3-13); RED BLOOD COUNT 4.29 10^6/uL (3.72-5.28); RED CELL DISTRIBUTION WIDTH 14.1 % (11.5-14.0); WHITE BLOOD COUNT 12.8 10^3/uL (4.0-10.5)
--- NOTE | 2017-04-15 14:28 | RADIOLOGY REPORT (SQ) ---
EXAM DESCRIPTION: CHEST SINGLE VIEW COMPLETED DATE/TIME: 04/15/2017 2:18 pm REASON FOR STUDY: chest pain COMPARISON: None. NUMBER OF VIEWS: One view. TECHNIQUE: Single frontal radiographic view of the chest acquired. LIMITATIONS: None. FINDINGS: LUNGS AND PLEURA: Mild central Peribronchial cuffing and interstitial changes. No consolid ation, pneumothorax or effusion. MEDIASTINUM AND HILAR STRUCTURES: No masses. Contour normal. HEART AND VASCULAR STRUCTURES: Heart normal in size. Normal vasculature. BONES: No acute findings. HARDWARE: None in the chest. OTHER: No other significant finding. IMPRESSION: REACTIVE AIRWAY DISEASE VERSUS VIRAL SYNDROME. NO CONSOLIDATION. TECHNICAL DOCUMENTATION: JOB ID: [id number] [employer]- All Rights Reserved
[2017-04-15 14:40] LABS: ALANINE AMINOTRANSFERASE 24 U/L (9-52); ALBUMIN 4.1 g/dL (3.5-5.0); ALKALINE PHOSPHATASE 91 U/L (38-126); ANION GAP 11 (5-19); ASPARTATE AMINO TRANSFERASE 12 U/L (14-36); BILIRUBIN,DIRECT 0.4 mg/dL (0.0-0.4); BILIRUBIN,TOTAL 0.5 mg/dL (0.2-1.3); BLOOD UREA NITROGEN 8 mg/dL (7-20); CALCIUM 9.5 mg/dL (8.4-10.2); CARBON DIOXIDE 21 mmol/L (22-30); CHLORIDE 109 mmol/L (98-107); CREATINE KINASE 44 U/L (30-135); CREATININE RESULT 0.74 mg/dL (0.52-1.25); GLUCOSE 98 mg/dL (75-110); POTASSIUM 4.2 mmol/L (3.6-5.0); SODIUM 140.9 mmol/L (137-145); TOTAL PROTEIN 7.5 g/dL (6.3-8.2)
[2017-04-15] MEDS ORDERED: NORMAL SALINE 500 ML IV ONE (15:04)
[2017-04-15 15:05] LABS: CREATINE KINASE MB < 0.22 ng/mL (<4.55); TROPONIN I < 0.012 ng/mL
--- NOTE | 2017-04-15 15:05 | ER Document Report ---
ED Cardiac - General Mode of Arrival: Ambulatory Information source: Patient TRAVEL OUTSIDE OF THE [place] IN LAST 30 DAYS: No - HPI Patient complains to provider of: Other - heart racing, chest pressure Is the pain a: Chronic problem Quality of pain: Pressure Chest pain precipitating factors: blood draw Positive cardiac history: No Similar symptoms previously: Yes Recently seen / treated by doctor: Yes <JOEL ROBBINS - Last Filed: 04/15/17 15:12> <MARTHA RICHARDS - Last Filed: 04/15/17 17:23> - General Chief Complaint: Chest Pain Stated Complaint: CHEST PRESSURE Time Seen by Provider: 04/15/17 13:48 Notes: Patient is a 36-year-old female that presents to the emergency department today with complaints of her heart racing patient prior to arrival. Patient states she was getting her blood drawn today, she does her heart rate regimen, and she "felt like she was going to pass out". Patient was seen in this emergency department on April 05 for SVT, she was seen again on April 11 for "chest pressure" . Patient is currently taking digoxin, she states she has not missed any dosages and there have not been any to her medication including her Seroquel. Patient states she has not been consuming caffeine since having SVT. Patient states that she is usually "doing nothing or lying down" when her heart begins to race. Patient is currently wearing an event monitor however she states "it happened too fast today so she was unable to capture it". (JOEL ROBBINS) - Related Data Allergies/Adverse Reactions: amoxicillin Allergy (Verified 04/15/17 14:07) Penicillins Allergy (Verified 04/15/17 14:07) ibuprofen [From Motrin] Adverse Reaction (Verified 04/15/17 14:07) ulcer naproxen Adverse Reaction (Verified 04/15/17 14:07) ulcer Past Medical History - General Information source: Patient - Social History Smoking Status: Current Every Day Smoker Frequency of alcohol use: None Drug Abuse: None Lives with: Friend Family History: Reviewed & Not Pertinent, CAD, CVA, DM, Hyperlipidemia, Hypertension, Malignancy Pulmonary Medical History: Reports: Hx Asthma Renal/ Medical History: Reports: Hx Kidney Stones, Hx Ovarian Cysts GI Medical History: Reports: Hx Gastroesophageal Reflux Disease, Hx Colonoscopy , Hx Endoscopy Musculoskeltal Medical History: Reports Hx Musculoskeletal Deformity, Reports Hx Musculoskeletal Trauma Psychiatric Medical History: Reports: Hx Anxiety, Hx Bipolar Disorder, Hx Depression Traumatic Medical History: Reports: Hx Fractures Past Surgical History: Reports: Hx Appendectomy, Hx Cardiac Catheterization - no stent, Hx Cholecystectomy, Hx Hysterectomy, Hx Orthopedic Surgery - back surgery, left knee, Hx Tonsillectomy - Immunizations Immunizations up to date: No Hx Diphtheria, Pertussis, Tetanus Vaccination: No <JOEL ROBBINS - Last Filed: 04/15/17 15:12> Review of Systems - Review of Systems Constitutional: No symptoms reported EENT: No symptoms reported Cardiovascular: See HPI, Heart racing, Other - chest pressure Respiratory: No symptoms reported Gastrointestinal: No symptoms reported Genitourinary: No symptoms reported Female Genitourinary: No symptoms reported Musculoskeletal: No symptoms reported Skin: No symptoms reported Hematologic/Lymphatic: No symptoms reported Neurological/Psychological: No symptoms reported -: Yes All other systems reviewed and negative <JOEL ROBBINS - Last Filed: 04/15/17 15:12> Physical Exam - Vital signs Interpretation: Normal - General General appearance: Appears well, Alert - HEENT Head: Normocephalic, Atraumatic Eyes: Normal Pupils: PERRL - Respiratory Respiratory status: No respiratory distress Chest status: Nontender Breath sounds: Normal Chest palpation: Normal - Cardiovascular Rhythm: Regular Heart sounds: Normal auscultation Murmur: No - Abdominal Inspection: Normal Distension: No distension Bowel sounds: Normal Tenderness: Nontender Organomegaly: No organomegaly - Back Back: Normal, Nontender - Extremities General upper extremity: Normal inspection, Nontender, Normal color, Normal ROM , Normal temperature General lower extremity: Normal inspection, Nontender, Normal color, Normal ROM , Normal temperature, Normal weight bearing. No: Aaron's sign - Neurological Neuro grossly intact: Yes Cognition: Normal Orientation: AAOx4 [place] Coma Scale Eye Opening: Spontaneous [place] Coma Scale Verbal: Oriented [place] Coma Scale Motor: Obeys Commands Jose[place] Coma Scale Total: 15 Speech: Normal Motor strength normal: LUE, RUE, LLE, RLE Sensory: Normal - Psychological Associated symptoms: Normal affect, Anxious - Skin Skin Temperature: Warm Skin Moisture: Dry Skin Color: Normal <MARTHA RICHARDS - Last Filed: 04/15/17 17:23> - Vital signs Vitals: Temp Resp Pulse Ox 98.2 F 20 99 04/15/17 13:40 04/15/17 13:40 04/15/17 13:40 Course - Laboratory Result Diagrams: 04/15/17 13:58 04/15/17 13:58 <JOEL ROBBINS - Last Filed: 04/15/17 15:12> - Laboratory Result Diagrams: 04/15/17 13:58 04/15/17 13:58 - Diagnostic Test Radiology reviewed: Reports reviewed - EKG Interpretation by Me EKG shows normal: Sinus rhythm Rate: Tachycardia Rhythm: NSR <MARTHA RICHARDS - Last Filed: 04/15/17 17:23> - Re-evaluation Re-evalutation: 04/15/17 16:13 Is a 36-year-old female with a history of SVT who comes in for tachycardia and lightheadedness today. Patient status post heart rate was 118 per EMS. Patient has not been tachycardic in the emergency department. Patient was seen at the [facility] today and given atenolol which she is to start at home. Patient has had a recent negative CTA and a recent normal echocardiogram with absolutely no evidence for congestive heart failure. Patient has a negative troponin. She is taking her medications as prescribed. Patient has a history of asthma and continues to smoke. Patient does not want albuterol or DuoNeb or Xopenex at this time and she does not want to do anything that could possibly make her heart rate. Patient and family are very frustrated that the patient continues to have symptoms. Patient has been discussed with her clinical research tech, Dr. Hernández who has given her his cell phone number and said to follow-up in the office tomorrow. Patient also informs me that she does not have insurance to pay for medications or to follow- up with doctors. Social work has been consulted and will be involved in helping this patient obtain medical care. She is encouraged to stop smoking. Patient would like to go home at this time. Stable for discharge. (MARTHA RICHARDS) - Vital Signs Vital signs: Temp Pulse Resp BP Pulse Ox 98.2 F 19 101/59 L 100 04/15/17 13:40 04/15/17 16:08 04/15/17 16:08 04/15/17 16:08 - Laboratory Laboratory results interpreted by me: 04/15/17 04/15/17 04/15/17 13:58 13:58 13:58 WBC 12.8 H RDW 14.1 H Absolute Neutrophils 8.3 H Chloride 109 H Carbon Dioxide 21 L AST 12 L Digoxin 0.71 L Discharge <JOEL ROBBINS - Last Filed: 04/15/17 15:12> <MARTHA RICHARDS - Last Filed: 04/15/17 17:23> - Discharge Clinical Impression: Chest pressure, Paroxysmal supraventricular tachycardia, Tachycardia with heart rate 100-120 beats per minute Condition: Stable Disposition: HOME, SELF-CARE Instructions: Paroxysmal Supraventricular Tachycardia ([facility]) Additional Instructions: Please start taking the Atenolol 25 mg once daily. Follow up with clinical research tech tomorrow. There has been a consult placed for social work to follow-up with you. Referrals: CHRISTY HERNÁNDEZ MD [ACTIVE STAFF] - Follow up tomorrow Scribe Attestation: 04/15/17 17:23 I personally performed the services described in the documentation, reviewed and edited the documentation which was dictated to the scribe in my presence, and it accurately records my words and actions. (MARTHA RICHARDS) Scribe Documentation - Scribe Written by Marciano:: Marciano Vega, 04/15/2017 1523 acting as scribe for :: Rosa <JOEL ROBBINS - Last Filed: 04/15/17 15:12>
[2017-04-15] MEDS ORDERED: ATENOLOL 50 MG TABLET PO ONE (16:09)
[2017-04-15 16:16] VITALS: BP 101/59
--- NOTE | 2017-04-15 20:02 | EKG REPORT ---
SEVERITY:- BORDERLINE ECG - SINUS TACHYCARDIA BORDERLINE T ABNORMALITIES, DIFFUSE LEADS : Confirmed by: David Clarke MD 15-Apr-2017 20:01:57
== END 2017-04-15 17:03 | disposition home or self-care (01) ==
LOC: ER 13:37
DX: R07.9 Chest pain, unspecified (principal); I47.1 Supraventricular tachycardia; Z79.899 Other long term (current) drug therapy; F17.200 Nicotine dependence, unspecified, uncomplicated
CPT/HCPCS: 93005; 99285; 96360; 36415; 82553; 82550; 80162; 83735; 85025; 80053; 84484; 71010; 93010; J7040

== ENCOUNTER → 2017-04-15 | Outpatient (CLI) | payer OTHER ==
[2017-04-15 13:54] LABS: ANION GAP 13 (5-19); BLOOD UREA NITROGEN 8 mg/dL (7-20); CALCIUM 9.4 mg/dL (8.4-10.2); CARBON DIOXIDE 19 mmol/L (22-30); CHLORIDE 109 mmol/L (98-107); CREATININE RESULT 0.65 mg/dL (0.52-1.25); GLUCOSE 101 mg/dL (75-110)
[2017-04-17 10:02] LABS: THYROXINE (T4) 6.6 ug/dL (4.5-12.0)
== END ==
LOC: CCC 12:27
DX: R00.0 Tachycardia, unspecified (principal)
CPT/HCPCS: 36415; 80048; 83735; 84436; 84443; 84479

== ENCOUNTER → 2017-04-15 | Outpatient (CLI) | payer SELFPAY | LOC: OD 12:19 | PROVIDERS: ATTEND Emergency Medicine | DX: I10 Essential (primary) hypertension (principal); Z53.8 Procedure and treatment not carried out for other reasons ==

== ENCOUNTER → 2017-04-29 | Outpatient (CLI) | payer OTHER ==
[~2017-04-29] MED LIST: AMINOPHYLLINE INJ/PF 250 MG/10 ML SDV IV ONE; REGADENOSON INJ 0.4 MG/5 ML DISP.SYRIN IV ONE
--- NOTE | 2017-04-30 12:57 | DRAGON STRESS TEST REPORT ---
INTRAVENOUS LEXISCAN CARDIOLITE STRESS TEST USING SINGLE PHOTON EMMISION COMPUTERIZED TOMOGRAPHIC. DATE OF PROCEDURE: April 29, 2017 INDICATION : Chest pain CARDIAC RISK FACTORS: Hypertension, tobacco abuse RESTING EKG: Sinus rhythm, no baseline ST-T wave changes except for nonspecific T inversion inferior leads STRESS EKG: No significant changes noted with LexiScan bolus REASON FOR TERMINATION: Protocol. PROCEDURE REPORT: Baseline heart rate 95 beats per minute with blood pressure of 106/68. Patient had no significant complaints. Heart rate at 2 minutes post bolus 116 with a blood pressure of 116/54 3 minutes post bolus heart rate 110 with blood pressure of 118/53. No significant EKG changes were noted. Patient had no significant complaints during the procedure or postprocedure. Patient injected with Aminophyllin 75 mg at 3 minutes or later after Lexiscan bolus. CONCLUSIONS: Normal EKG and hemodynamic response to IV LexiScan. NUCLEAR DATA: At rest the patient was given 13.89 millicuries of technetium 99 sestamibi injected intravenously. As per protocol rest gated SPECT images were obtained. Subsequently the patient was given intravenous LexiScan at a dose of 0.4 mg in 5 mL intravenously, followed by flush with normal saline. Subsequently the stress dose of 44.9 millicuries of technetium 99 sestamibi was injected intravenously. As per protocol stress gated images were obtained. NUCLEAR INTERPRETATION: Both raw and processed data were used for interpretation. Visual, qualitative, computer-generated quantitative data was used. There was good myocardial uptake of technetium compound. Motion artifact and soft tissue attenuations were noted. Increased visceral uptake was noted. No definitive areas of transient perfusion defect noted. No definitive areas of fixed perfusion defect or scars noted. EKG gated imaging showed LV EF at 60 %, rest and stress gated EF similar visually. T. I D. ratio was 1.10. Lung heart ratio noted to be within normal limits 0.29. No significant extracardiac and abnormal radiotracer activities were noted. RV free wall uptake was noted to be borderline increased. IMPRESSION: Also refer to comments under nuclear interpretation. Also test results needs to be interpreted in the context of pretest probability. 1. There is no definitive scintigraphic evidence of LexiScan induced myocardial ischemia. 2. There is no definitive scintigraphic evidence of myocardial infarction/scar. 3. EKG gated imaging shows left ejection fraction of approximately 60 %. 4. Clinical correlation requested as occasionally single vessel disease or balanced ischemia could be missed. In approximately 10% of the cases Lexiscan may not cause adequate vasodilatory stress. RECOMMENDATIONS: Aggressive risk factor modification, medical therapy. Clinical correlation with echocardiogram derived ejection fraction. Inability to exercise by itself can lead to increased cardiovascular event risks. El Rodgers M.D., [facility] [employer] Therapist side stitcher, Board certified in cardiovascular diseases, Nuclear cardiology, Echocardiography Cardiac CT and cardiac MRI Ph. [phone] [facility]
== END ==
LOC: RAD 08:47
PROVIDERS: ATTEND Specialist
DX: R07.9 Chest pain, unspecified (principal)
CPT/HCPCS: 93017; 78452; A9500; J2785; J0280; Q9969

== ENCOUNTER 2017-07-15 18:51 | Emergency (ER) | payer OTHER ==
[2017-07-15 19:41] VITALS: BP 153/84
[2017-07-15] MEDS ORDERED: CLINDAMYCIN HCL 150 MG CAPSULE PO ONE (21:01)
[2017-07-15] MEDS ORDERED: ACETAMINOPHEN 325 MG TABLET PO ONE (21:01)
--- NOTE | 2017-07-15 21:01 | ER Document Report ---
ED Medical Screen (RME) - General Chief Complaint: Mouth Problem Stated Complaint: MOUTH PAIN Time Seen by Provider: 07/15/17 20:59 Mode of Arrival: Ambulatory Information source: Patient Notes: 37-year-old female presents to ED for a dental abscess in the upper right front gums. She has cavities in the same area. She has not called the dentist. She states that the pain in this area just started this morning and the swelling started this morning but she has had a cavity for a long time. She states she is allergic to penicillin. States that the pain is getting to the point where she needs something for it. I have greeted and performed a rapid initial assessment of this patient. A comprehensive ED assessment and evaluation of the patient, analysis of test results and completion of medical decision making process will be conducted by an additional ED providers. TRAVEL OUTSIDE OF THE [place].S. IN LAST 30 DAYS: No - Related Data Allergies/Adverse Reactions: amoxicillin Allergy (Verified 07/15/17 19:37) Penicillins Allergy (Verified 07/15/17 19:37) ibuprofen [From Motrin] Adverse Reaction (Verified 07/15/17 19:37) ulcer naproxen Adverse Reaction (Verified 07/15/17 19:37) ulcer Past Medical History Pulmonary Medical History: Reports: Hx Asthma Renal/ Medical History: Reports: Hx Kidney Stones, Hx Ovarian Cysts. Denies: Hx Peritoneal Dialysis GI Medical History: Reports: Hx Gastroesophageal Reflux Disease, Hx Colonoscopy , Hx Endoscopy Musculoskeltal Medical History: Reports Hx Musculoskeletal Deformity, Reports Hx Musculoskeletal Trauma Psychiatric Medical History: Reports: Hx Anxiety, Hx Bipolar Disorder, Hx Depression Traumatic Medical History: Reports: Hx Fractures Past Surgical History: Reports: Hx Appendectomy, Hx Cardiac Catheterization - no stent, Hx Cholecystectomy, Hx Hysterectomy, Hx Orthopedic Surgery - back surgery, left knee, Hx Tonsillectomy - Immunizations Immunizations up to date: No Hx Diphtheria, Pertussis, Tetanus Vaccination: No Physical Exam - Vital signs Vitals: Temp Pulse Resp BP Pulse Ox 98.6 F 117 H 22 H 153/84 H 98 07/15/17 19:39 07/15/17 19:39 07/15/17 19:39 07/15/17 19:39 07/15/17 19:39 Course - Vital Signs Vital signs: Temp Pulse Resp BP Pulse Ox 98.6 F 117 H 22 H 153/84 H 98 07/15/17 19:39 07/15/17 19:39 07/15/17 19:39 07/15/17 19:39 07/15/17 19:39
[2017-07-15] MEDS ORDERED: LIDOCAINE 1% INJ-PF (10 MG/ML) 30 ML SDV INJ ONE (22:42)
--- NOTE | 2017-07-15 22:46 | ER Document Report ---
ED Oral Problem - General Chief Complaint: Mouth Problem Stated Complaint: MOUTH PAIN Time Seen by Provider: 07/15/17 20:59 Mode of Arrival: Ambulatory Information source: Patient TRAVEL OUTSIDE OF THE [place] IN LAST 30 DAYS: No - HPI Patient complains to provider of: Toothache, Other - Dental abscess Onset: Yesterday Onset: Gradual Quality of pain: Achy, Pressure Severity: Moderate Pain Level: 4 Associated symptoms: None Notes: Patient is a 37-year-old female presenting to the emergency room today complaining of dental abscess that has been worsening since yesterday, she reports diffusely poor dentition, no current dentist or dental care, denies any injury or trauma, no fevers, no drainage, no history of dental abscess previously - Related Data Allergies/Adverse Reactions: amoxicillin Allergy (Verified 07/15/17 19:37) Penicillins Allergy (Verified 07/15/17 19:37) ibuprofen [From Motrin] Adverse Reaction (Verified 07/15/17 19:37) ulcer naproxen Adverse Reaction (Verified 07/15/17 19:37) ulcer Past Medical History - General Information source: Patient - Social History Smoking Status: Current Every Day Smoker Chew tobacco use (# tins/day): No Frequency of alcohol use: None Drug Abuse: None Family History: Reviewed & Not Pertinent, CAD, CVA, DM, Hyperlipidemia, Hypertension, Malignancy Patient has suicidal ideation: No Patient has homicidal ideation: No Pulmonary Medical History: Reports: Hx Asthma Renal/ Medical History: Reports: Hx Kidney Stones, Hx Ovarian Cysts. Denies: Hx Peritoneal Dialysis GI Medical History: Reports: Hx Gastroesophageal Reflux Disease, Hx Colonoscopy , Hx Endoscopy Musculoskeltal Medical History: Reports Hx Musculoskeletal Deformity, Reports Hx Musculoskeletal Trauma Psychiatric Medical History: Reports: Hx Anxiety, Hx Bipolar Disorder, Hx Depression Traumatic Medical History: Reports: Hx Fractures Past Surgical History: Reports: Hx Appendectomy, Hx Cardiac Catheterization - no stent, Hx Cholecystectomy, Hx Hysterectomy, Hx Orthopedic Surgery - back surgery, left knee, Hx Tonsillectomy - Immunizations Immunizations up to date: No Hx Diphtheria, Pertussis, Tetanus Vaccination: No Review of Systems - Review of Systems Constitutional: No symptoms reported EENT: See HPI Cardiovascular: No symptoms reported Respiratory: No symptoms reported Gastrointestinal: No symptoms reported Genitourinary: No symptoms reported Female Genitourinary: No symptoms reported Musculoskeletal: No symptoms reported Skin: No symptoms reported Hematologic/Lymphatic: No symptoms reported Neurological/Psychological: No symptoms reported -: Yes All other systems reviewed and negative Physical Exam - Vital signs Vitals: Temp Pulse Resp BP Pulse Ox 98.6 F 117 H 22 H 153/84 H 98 07/15/17 19:39 07/15/17 19:39 07/15/17 19:39 07/15/17 19:39 07/15/17 19:39 - Notes Notes: - General General appearance: Appears well, Alert In distress: None - HEENT Head: Normocephalic, Atraumatic Eyes: Normal Conjunctiva: Normal Extraocular movements intact: Yes Eyelashes: Normal Pupils: PERRL - Respiratory Respiratory status: No respiratory distress - Cardiovascular Rhythm: Regular - Abdominal Inspection: Normal - Back Back: Normal - Extremities General upper extremity: Normal inspection General lower extremity: Normal inspection - Neurological Neuro grossly intact: Yes Orientation: AAOx4 Josemanuel Coma Scale Eye Opening: Spontaneous [place] Coma Scale Verbal: Oriented [place] Coma Scale Motor: Obeys Commands [place] Coma Scale Total: 15 - Psychological Associated symptoms: Normal affect, Normal mood - Skin Skin Temperature: Warm Skin Moisture: Dry Skin Color: Normal - HEENT Teeth diagram: 1 - Dental abscess and gingiva approximately 1 cm Course - Re-evaluation Re-evalutation: 07/15/17 22:44 Incision and drainage was performed on dental abscess, patient was placed on antibiotics and advised to follow-up with a dentist or return if symptoms worsen , patient acknowledges understanding and agreement with this plan - Vital Signs Vital signs: Temp Pulse Resp BP Pulse Ox 98.6 F 117 H 22 H 153/84 H 98 07/15/17 19:39 07/15/17 19:39 07/15/17 19:39 07/15/17 19:39 07/15/17 19:39 Procedures - Incision and Drainage Upper gingiva Time completed: 22:44 Type: Single Anesthetic type: 1% Lidocaine mL's of anesthetic: 1 Blade size: 11 I&D procedure: Shurclens applied Incision Method: Incision made with needle Mouth/Teeth picture: 1 - 1 cm gingival abscess Discharge - Discharge Clinical Impression: Dental abscess Condition: Stable Disposition: HOME, SELF-CARE Instructions: Abscess ([facility]), Oral Narcotic Medication ([facility]), Post Incision and Drainage Additional Instructions: Follow up with your primary care provider and a dentist in one to 2 days. Return to the emergency room immediately if symptoms worsen or any additional concerns. Prescriptions: Clindamycin HCl [Cleocin 150 mg Capsule] 450 mg PO Q6 10 Days capsule Hydrocodone/Acetaminophen [Hydrocodon-Acetaminophen 5-325] 1 each PO Q6 #20 tablet Referrals: BRANDI WIGGINS MD [Primary Care Provider] - Follow up as needed
== END 2017-07-16 00:02 | disposition home or self-care (01) ==
LOC: ER 18:51
PROC: 0C95XZZ Drainage of Upper Gingiva, External Approach (ICD-10-PCS; principal; 2017-07-15)
DX: K04.7 Periapical abscess without sinus (principal); F17.200 Nicotine dependence, unspecified, uncomplicated; J45.909 Unspecified asthma, uncomplicated; Z88.0 Allergy status to penicillin
CPT/HCPCS: 99282